=== PATIENT | male | born 1945 | race Caucasian/White ===

== ENCOUNTER → 2016-07-31 | Outpatient (CLI) | payer MEDICARE | LOC: GMAL 17:06 | PROVIDERS: ATTEND Family Medicine | DX: I50.9 Heart failure, unspecified (principal); N18.3 Chronic kidney disease, stage 3 (moderate) ==

== ENCOUNTER → 2016-11-19 | Outpatient (CLI) | payer MEDICARE | END | disposition home or self-care (01) | LOC: GMAL 16:36 | PROVIDERS: ATTEND Family Medicine | DX: R11.0 Nausea (principal) ==

== ENCOUNTER → 2017-02-11 | Outpatient (CLI) | payer MEDICARE | END | disposition home or self-care (01) | LOC: GMAL 11:17 | PROVIDERS: ATTEND Family Medicine | DX: D51.3 Other dietary vitamin B12 deficiency anemia (principal); R97.20 Elevated prostate specific antigen [PSA]; E55.9 Vitamin D deficiency, unspecified | CPT/HCPCS: 82306; 82607; G0103 ==

== ENCOUNTER → 2017-07-18 | Outpatient (CLI) | payer MEDICARE | LOC: GMAL 14:34 | PROVIDERS: ATTEND Family Medicine | DX: D51.3 Other dietary vitamin B12 deficiency anemia (principal); R53.81 Other malaise; E55.9 Vitamin D deficiency, unspecified ==

== ENCOUNTER → 2017-08-14 | Outpatient (CLI) | payer MEDICARE | LOC: GMAL 10:50 | PROVIDERS: ATTEND Family Medicine | DX: R97.20 Elevated prostate specific antigen [PSA] (principal); E29.1 Testicular hypofunction | CPT/HCPCS: 84402; 84403; G0103 ==

== ENCOUNTER → 2017-12-02 | Outpatient (CLI) | payer MEDICARE ==
--- NOTE | 2017-12-02 15:32 | MRI ---
EXAM DESCRIPTION: Lumbar Spine w/o Contrast : Magnetic Resonance Imaging. CLINICAL HISTORY: RADICULOPATHY COMPARISON: None. TECHNIQUE: Multiplanar, multiple standard sequences, non contrast MRI, lumbar spine. FINDINGS: L5-S1, and disc desiccation posterior disc space minimally decreased. Tiny posterior broad-based bulge. Bilateral facet arthrosis and flavum ligament Hypertrophy. Borderline mild canal stenosis. Right foraminal stenosis and borderline left foraminal stenosis. Marrow edema in the right L5 pedicle. L4-5: Disc desiccation posterior disc space loss. Schmorl's nodes in the superior anterior endplate. Posterior broad-based 4 mm disc bulge. Bilateral flavum ligament hypertrophy and facet arthrosis with borderline canal stenosis. Bilateral subarticular recess narrowing. Mild narrowing of the left foramen. Facet hypertrophy on the right with moderate narrowing of the foramen abutting the exiting right L4 nerve. L3-4: Disc desiccation and moderate to severe disc space loss. Anterior bulging with endplate spurs. Anterior disc protrusion. Posterior broad-based disc bulge 4 mm abutting the thecal sac and the bilateral descending L4 nerves. No canal stenosis. Bilateral facet arthrosis and flavum ligament hypertrophy. Left side Modic type III endplate reactive changes with disc spur complex contributing to borderline left foraminal stenosis. Question atrophy of the left L3 nerve in the foramen. Moderate right foraminal narrowing. L2-3: Disc desiccation anterior bulging and endplate spurs. Disc space maintained. No posterior bulging. Flavum ligament hypertrophy with normal facets. Mild canal narrowing. Bilateral foramina are patent. L1-2: Disc desiccation minimal disc space loss. Schmorl's nodes in the superior inferior endplates. Anterior disc bulge with anterior endplate spurs. Tiny posterior disc bulge and trace retrolisthesis. Posterior elements unremarkable. Mild canal narrowing. Bilateral foramina are patent. T12-L1: Minimal disc desiccation and superior L1 endplate Schmorl's node. No canal or foraminal stenosis. Conus terminates at L1 level. Reduced lumbar lordosis. Paravertebral soft tissues paraspinal muscle atrophy.. Otherwise normal marrow signal in the remaining vertebral bodies and the posterior elements. Vertebral bodies are not compressed at any level. IMPRESSION: 1. Borderline mild canal stenosis at L5-S1 primarily due to posterior ligament hypertrophy and facet arthrosis with stenosis or near stenosis of the foramina bilaterally. 2. Spondylosis L4-5 and disc desiccation. Hypertrophy of the posterior elements. Right side facet abutting the exiting right L4 nerve in the foramen. 3. L3-4 spondylosis and severe disc space loss. Posterior disc bulge abutting the bilateral descending L4 nerves. Left side advanced spondylosis with disc osteophyte complex resulting in borderline left foraminal stenosis. Questionable atrophy of the left L3 nerve in the foramen. 4. L1-2 disc desiccation. Anterior disc bulge and endplate spurs. Trace retrolisthesis. Electronically signed by: Hieu Thomason MD 12/02/2017 3:31 PM CDT
== END ==
LOC: MRI 12:29
PROVIDERS: ATTEND Family Medicine
DX: M54.16 Radiculopathy, lumbar region (principal); M47.896 Other spondylosis, lumbar region

== ENCOUNTER → 2017-12-31 | Outpatient (CLI) | payer MEDICARE ==
--- NOTE | 2017-12-31 15:32 | US ---
Exam: Bilateral lower extremity arterial Doppler sonogram CLINICAL HISTORY: Mononeuropathy TECHNIQUE: Doppler sonographic evaluation of the bilateral lower extremities was performed. FINDINGS: Right Submitted sonographic images reveal arteriosclerotic plaque in the right common femoral and superficial femoral arteries. High velocity flows suggestive of moderate stenosis of the common femoral artery. No flow in the posterior tibial artery consistent with occlusion. The following peak systolic flow flow velocity measurements were obtained: Common femoral artery velocity equals 222 centimeters per second , triphasic. Superficial femoral artery velocity equals 80 -102 centimeters per second , triphasic. Popliteal artery velocity equals 63 centimeters per second , triphasic. Peroneal artery velocity equals 106 centimeters per second , triphasic. No flow is seen in the posterior tibial artery. Dorsalis pedis artery velocity equals 22 centimeters per second , biphasic. Left Submitted sonographic images reveal calcified plaque in the left lower extremity arteries. The following peak systolic flow flow velocity measurements were obtained: Common femoral artery velocity equals 122 centimeters per second , triphasic. Superficial femoral artery velocity equals 86-1 21 centimeters per second , biphasic. Popliteal artery velocity equals 128 centimeters per second , biphasic. Peroneal artery velocity equals 203 centimeters per second , biphasic. Posterior tibial artery velocity equals 79 centimeters per second , biphasic. Dorsalis pedis artery velocity equals 34 centimeters per second , biphasic. IMPRESSION: High velocity flow in the right common femoral artery consistent with moderate luminal stenosis by arteriosclerotic plaque. No flow in the right posterior tibial artery consistent with occlusion. Normal multiphasic flow in other vessels of the lower extremities. Electronically signed by: Delmar Aguero MD 12/31/2017 3:30 PM CDT
== END ==
LOC: US 09:24
PROVIDERS: ATTEND Family Medicine
DX: G57.93 Unspecified mononeuropathy of bilateral lower limbs (principal); I70.8 Atherosclerosis of other arteries

== ENCOUNTER → 2018-03-03 | Outpatient (CLI) | payer MEDICARE | LOC: GMAL 13:38 | PROVIDERS: ATTEND Family Medicine | DX: D50.9 Iron deficiency anemia, unspecified (principal); I48.1 Persistent atrial fibrillation ==

== ENCOUNTER → 2018-07-31 | Outpatient (CLI) | payer MEDICARE | LOC: GMAL 12:18 | PROVIDERS: ATTEND Family Medicine | DX: E83.42 Hypomagnesemia (principal) ==

== ENCOUNTER → 2018-08-06 | Outpatient (CLI) | payer MEDICARE ==
--- NOTE | 2018-08-07 11:18 | MRI ---
EXAM DESCRIPTION: Lumbar Spine w/o Contrast : Magnetic Resonance Imaging. CLINICAL HISTORY: SCIATICA RIGHT SIDE COMPARISON: MRI scan noncontrast lumbar spine 12/04/2017. TECHNIQUE: Multiplanar, multiple standard sequences, non contrast MRI, lumbar spine. FINDINGS: L5-S1: Disc desiccation and disc space maintained. Posterior broad-based 4 mm disc bulge. Minimal effacement of the bilateral subarticular recesses. Bilateral facet arthrosis and hypertrophy with the flavum ligaments impressing on the thecal sac. AP canal diameter 11 mm. Bilateral foraminal stenosis more on the right than the left. Stable since the prior study. L4-L5: Disc desiccation and minimal disc space loss. Posterior broad-based bulge. Bilateral narrowing of the subarticular recesses. Superior and inferior Schmorl's nodes. Stable postsurgical changes in the lamina with encroachment on the right posterior canal. AP canal diameter 10 mm. Bilateral moderate foraminal narrowing more on the right. L3-L4: Modic type III endplate reactive changes to the left of midline with significant loss of disc space. Also superior Schmorl's nodes. Anterior bulging and endplate ridging. Posterior disc osteophyte bulge encroaching on the thecal sac and effacement of the left subarticular recess. Facet arthrosis and hypertrophy with the flavum ligaments more on the left. AP canal diameter 8 mm. Left foraminal stenosis and mild to moderate right foraminal narrowing. No change from the prior study. L2-L3: Minimal disc desiccation with disc space preserved. Minimal anterior bulging. No posterior bulge. Mild facet arthrosis and hypertrophic with the flavum ligaments and mild canal narrowing. Bilateral foramina are patent. L1-L2: Disc desiccation with Schmorl's nodes anterior disc bulge and endplate ridging. 2 mm grade 1 retrolisthesis with posterior disc bulge. No significant canal narrowing. Bilateral foramina are patent. Circumscribed hyperintense T1 and T2 signal in the posterior superior L2 vertebral body indicative of a hemangioma. T12-L1: Minimal disc desiccation with disc space preserved. Anterior Schmorl's node. No posterior bulge and significant canal narrowing. Posterior elements unremarkable. Bilateral foramina are patent. Mild kyphosis upper lumbar spine. No significant scoliosis. Paravertebral soft tissues paraspinal muscle atrophy mild.. Normal marrow signal in the remaining vertebral bodies and the posterior elements. Vertebral bodies are not compressed at any level. IMPRESSION: 1. Posterior broad-based L5-S1 disc bulge with significant canal narrowing and bilateral foraminal stenosis. Stable since the prior study. 2. Stable postsurgical changes in the lamina. Borderline mild right paracentral canal stenosis. Posterior disc bulge. No change since the prior study. 3. Advanced spondylosis at L3-4 to the left of midline with mild to moderate central canal stenosis. Left foraminal stenosis. Stable since the prior study. 4. L1-L2 disc desiccation and disc space loss with grade 1 retrolisthesis. No significant canal or foraminal narrowing. No change from the prior study.. Electronically signed by: Hieu Thomason MD 08/07/2018 11:15 AM CDT
== END ==
LOC: MRI 13:00
PROVIDERS: ATTEND Family Medicine
DX: M48.062 Spinal stenosis, lumbar region with neurogenic claudication (principal); M51.36 Other intervertebral disc degeneration, lumbar region; M43.16 Spondylolisthesis, lumbar region; M47.896 Other spondylosis, lumbar region; Z98.890 Other specified postprocedural states

== ENCOUNTER → 2019-01-05 | Outpatient (CLI) | payer MEDICARE | LOC: GMAL 10:49 | PROVIDERS: ATTEND Family Medicine | DX: D51.3 Other dietary vitamin B12 deficiency anemia (principal); I50.40 Unspecified combined systolic (congestive) and diastolic (congestive) heart failure; I48.1 Persistent atrial fibrillation; R53.83 Other fatigue ==

== ENCOUNTER → 2019-03-09 | Outpatient (CLI) | payer MEDICARE | LOC: GMAL 10:50 | PROVIDERS: ATTEND Family Medicine | DX: N18.3 Chronic kidney disease, stage 3 (moderate) (principal) ==

== ENCOUNTER 2019-08-07 13:03 | Emergency (ER) | payer MEDICARE ==
--- NOTE | 2019-08-07 13:25 | ED.PDOC ---
History of Present Illness - General Chief Complaint: General Stated Complaint: Pt reports "feeling crummy" for past few days Time Seen by Provider: 08/07/19 13:22 Source: patient, family Exam Limitations: no limitations - History of Present Illness Initial Comments: Pt reports feeling week the past ~3 days. Pt has chronic back/right sciatic pain, which has been worse over the past few days. Pt denies cough, SOB, F/C, N/V/D. Pt denies urinary or bowel issues. Dr. Boyd, pt's PCP, called ~30 min [employer] to share that pt was slightly altered and that has INR was >8 because it was too high for his machine to detect. says same thing occurred in the past 6 months in [facility]. Pt reports no recent injuries. Timing/Duration: other - ~3 days Severity: moderate Improving Factors: nothing Worsening Factors: nothing Associated Symptoms: denies symptoms Allergies/Adverse Reactions: Allergies Atorvastatin [From Lipitor] Allergy (Unknown, Unverified 03/09/13 16:50) FROM WRITTEN PHYSICIAN ORDERS Liraglutide [From Victoza] Allergy (Unknown, Unverified 03/09/13 16:51) FROM WRITTEN PHYSICIAN ORDER SHEET Phenol [From Victoza] Allergy (Unknown, Unverified 03/09/13 16:51) FROM WRITTEN PHYSICIAN ORDER SHEET Propylene Glycol [From Victoza] Allergy (Unknown, Unverified 03/09/13 16:51) FROM WRITTEN PHYSICIAN ORDER SHEET Home Medications: Ambulatory Orders Aspirin [Aspirin Childrens] 81 mg PO BID 08/07/19 Carvedilol 6.25 mg PO BID 08/07/19 Cholecalciferol [D3 High Potency] 5,000 unit PO DAILY 08/07/19 Famotidine 20 mg PO DAILY 08/07/19 Febuxostat [Uloric] 80 mg PO DAILY 08/07/19 Ferrous Fumarate-Iron Polysacc [Integra F 125-1 mg] 1 cap PO DAILY 08/07/19 Fluoxetine HCl [Prozac] 40 mg PO DAILY 08/07/19 Furosemide PO MOWEFR 08/07/19 Gemfibrozil 08/07/19 Gemfibrozil PO BID 08/07/19 HYDROcodone 10MG/APAP 325MG [[place] 10/325] 1 tab PO Q6HRS 08/07/19 Hydrocortisone 2.5 mg PO BID 08/07/19 Insulin Aspart [Novolog Flexpen] 08/07/19 LORazepam [Ativan] PRN 08/07/19 Magnesium Oxide [Mag-Ox Tab] PO DAILY 08/07/19 Misc Natural Products [Urinozinc] 1 cap PO BID 08/07/19 Ramipril 10 mg PO BID 08/07/19 Testosterone Cypionate 200 mg IM 08/07/19 Tresiba Flextouch 20 units SUBCU BID 08/07/19 diltiaZEM HCL CD [Cardizem CD] PO BID 08/07/19 fentaNYL PATCH 25 MCG/HR [Duragesic Patch 25 MCG/HR] 08/07/19 Review of Systems - Review of Systems Constitutional: States: see HPI, weakness. Denies: chills, diaphoresis, fever EENTM: States: no symptoms reported Respiratory: States: no symptoms reported, wheezing - But baseline and unchanged per . Denies: cough, orthopnea, short of breath Cardiology: States: no symptoms reported Gastrointestinal/Abdominal: States: no symptoms reported. Denies: abdominal pain, constipation, diarrhea, nausea, vomiting Genitourinary: States: no symptoms reported. Denies: dysuria, frequency, hematuria, pain Musculoskeletal: States: back pain, joint pain, muscle pain. Denies: gout, joint swelling, neck pain Skin: States: no symptoms reported Neurological: States: no symptoms reported. Denies: anxiety, depressed, headache Endocrine: States: no symptoms reported Past Medical History (General) - Patient Medical History Hx Cardiac Disorders: Yes Hx Congestive Heart Failure: No Hx Pacemaker: No Hx Hypertension: Yes Hx Diabetes: Yes Hx MRSA: No Family Medical History - Family History Mother Family History: Unknown Living Status: Unknown Physical Exam - Physical Exam General Appearance: Alert, Comfortable, No apparent distress Ears, Nose, Throat: normal ENT inspection Neck: non-tender, full range of motion, supple, normal inspection Respiratory: chest non-tender, lungs clear, normal breath sounds, no respiratory distress, no accessory muscle use Cardiovascular/Chest: normal peripheral pulses, regular rate, rhythm, no edema, no gallop, no JVD, no murmur Gastrointestinal/Abdominal: normal bowel sounds, non tender, soft, no organomegaly, no pulsatile mass Back Exam: normal inspection, no CVA tenderness Extremity: normal range of motion Neurologic: alert, normal mood/affect, oriented x 3 Skin Exam: normal color, warm/dry Progress - Progress Progress: 08/07/19 14:15 Patient Name: ARMANDO BARONE Gender: Male Date of : 1945 Referring Physician: BERNARD SANCHEZ Organization: [facility] Accession Number: [id number] Requested Date: August 07, 2019 13:29 Report Status: Final Requested Procedure: 1 Procedure Description: Head Modality: CT Findings Reporting MD: Rolly Gloria Fellow MD: Not available Dictation Time: Yard Stocker: Not available Epic Ambulatory Analyst Date: Study: CT of the Head. Indication: AMS, INR>8 Technique: Axial CT images of the head were acquired without intravenous contrast. This exam was performed according to our departmental dose-opti mization program, which includes automated exposure control, adjustment of the mA and/or kV according to patient size and/or use of iterative reconstruction technique. Comparison: None. Findings: No acute ischemia, acute hemorrhage, mass, mass effect, midline shift, or extra-axial fluid collection identified by CT. Ventricles are normal in configuration without hydrocephalus. Patchy hypoattenuation of the periventricular and subcortical white matter noted. This is nonspecific but most consistent with chronic microvascular ischemic change. Global parenchymal volume loss and intracranial atherosclerosis noted as well. Paranasal sinuses are adequately aerated. Mastoid air cells are adequately aerated. Osseous structures and soft tissues are unremarkable. Impression: No acute intracranial abnormality by CT. Senescent changes. Electronically signed by: Rolly Gloria MD 08/07/2019 2:05 PM CDT 08/07/19 14:17 Findings Reporting MD: Rhonda Regan Fellow MD: Not available Dictation Time: Yard Stocker: Not available Epic Ambulatory Analyst Date: EXAM DESCRIPTION: Chest,1 View CLINICAL HISTORY: 73 years Male, AMS COMPARISON: None available. TECHNIQUE: AP radiograph of the chest was obtained. FINDINGS: Trachea is midline.The cardiomediastinal silhouette is enlarged in size. Mild pulmonary vascular congestion. Left lower lobe atelectasis.No evidence of pleural effusions. IMPRESSION: Enlarged cardiac silhouette with pulmonary vascular congestion. Left lower lobe atelectasis. Electronically signed by: Rhonda Regan MD 08/07/2019 2:02 PM CDT 08/07/19 15:05 HGB noted 6.6. Occult blood feces ordered. Attempting to page Dr. Boyd but he is out of office for rest of day. 08/07/19 15:06 Vitamin K IM ordered. Will page hospitalist to see if pt can be admitted at this facility of needs to be transferred. 08/07/19 15:18 08/07/19 13:30 PRBC [PACKED CELLS,LR] Stat TYPE AND SCREEN Stat EKG Assessment DAILY EKG STAT 08/07/19 14:31 FECAL OCCULT BLOOD Stat 08/07/19 15:12 Consult:Hospitalist Routine Laboratory Results - last 24 hr 08/07/19 08/07/19 08/07/19 13:29 13:29 13:30 WBC RBC Hgb Hct MCV MCH MCHC RDW Plt Count MPV Absolute Neuts (auto) Absolute Lymphs (auto) Absolute Monos (auto) Absolute Eos (auto) Absolute Basos (auto) Neutrophils % Lymphocytes % Monocytes % Eosinophils % Basophils % PT INR Sodium 136 Potassium 5.4 H Chloride 103 Carbon Dioxide 23 Anion Gap 15.4 BUN 116 H* Creatinine 3.65 H BUN/Creatinine Ratio 31.8 H Random Glucose 174 H Serum Osmolality Not Reportable Lactic Acid Calcium 9.2 Total Bilirubin 0.3 AST 12 ALT 12 Alkaline Phosphatase 41 L Troponin I 0.03 Serum Total Protein 6.8 Albumin 3.8 Globulin 3.0 Albumin/Globulin Ratio 1.3 Urine Color Urine Appearance Urine pH Ur Specific Bartlett Urine Protein Urine Glucose (UA) Urine Ketones Urine Blood Urine Nitrite Urine Bilirubin Urine Urobilinogen Ur Leukocyte Esterase Urine RBC Urine WBC Ur Epithelial Cells Urine Bacteria Crossmatch See Detail 08/07/19 08/07/19 08/07/19 14:15 14:20 14:20 WBC 6.0 RBC 2.41 L Hgb 6.6 L* Hct 20.6 L MCV 85.8 MCH 27.3 MCHC 31.8 L RDW 18.2 H Plt Count 267 MPV 7.0 L Absolute Neuts (auto) 4.70 Absolute Lymphs (auto) 0.60 L Absolute Monos (auto) 0.50 Absolute Eos (auto) 0.20 Absolute Basos (auto) 0.00 Neutrophils % 77.5 Lymphocytes % 9.7 L Monocytes % 8.1 Eosinophils % 4.1 Basophils % 0.6 PT > 93.6 H* INR Not Reportable Sodium Potassium Chloride Carbon Dioxide Anion Gap BUN Creatinine BUN/Creatinine Ratio Random Glucose Serum Osmolality Lactic Acid 0.7 Calcium Total Bilirubin AST ALT Alkaline Phosphatase Troponin I Serum Total Protein Albumin Globulin Albumin/Globulin Ratio Urine Color Urine Appearance Urine pH Ur Specific [place] Urine Protein Urine Glucose (UA) Urine Ketones Urine Blood Urine Nitrite Urine Bilirubin Urine Urobilinogen Ur Leukocyte Esterase Urine RBC Urine WBC Ur Epithelial Cells Urine Bacteria Crossmatch 08/07/19 14:47 WBC RBC Hgb Hct MCV MCH MCHC RDW Plt Count MPV Absolute Neuts (auto) Absolute Lymphs (auto) Absolute Monos (auto) Absolute Eos (auto) Absolute Basos (auto) Neutrophils % Lymphocytes % Monocytes % Eosinophils % Basophils % PT INR Sodium Potassium Chloride Carbon Dioxide Anion Gap BUN Creatinine BUN/Creatinine Ratio Random Glucose Serum Osmolality Lactic Acid Calcium Total Bilirubin AST ALT Alkaline Phosphatase Troponin I Serum Total Protein Albumin Globulin Albumin/Globulin Ratio Urine Color Yellow Urine Appearance Clear Urine pH 5.5 Ur Specific Bartlett 1.020 Urine Protein 100 H Urine Glucose (UA) Negative Urine Ketones Negative Urine Blood Negative Urine Nitrite Negative Urine Bilirubin Negative Urine Urobilinogen 0.2 Ur Leukocyte Esterase Negative Urine RBC 0 Urine WBC 0 Ur Epithelial Cells 0-1 Urine Bacteria 0 Crossmatch D/w Devin Veliz. He felt pt was best served by transfer since pt has acute on chronic kidney failure and likely has blood loss anemia. 08/07/19 15:50 D/w Dr. Marcial Rosenthal at [facility], will accept transfer. - EKG/XRAY/CT EKG: Fibrillation Comments: Rate 64, LAD, RBBB, no acute ST changes Departure - Departure Clinical Impression: General weakness, Symptomatic anemia, Acute on chronic kidney failure, Altered mental status, Supratherapeutic INR, Anticoagulated on Coumadin Time of Disposition: 15:19 Disposition: Transfer to Hospital Condition: Fair Departure Forms: ED Discharge - Pt. Copy, Patient Portal Self Enrollment Referrals: Ladarius Boyd III, MD [Primary Care Provider] - 1-2 Weeks Home Medications: Ambulatory Orders Aspirin [Aspirin Childrens] 81 mg PO BID 08/07/19 Carvedilol 6.25 mg PO BID 08/07/19 Cholecalciferol [D3 High Potency] 5,000 unit PO DAILY 08/07/19 Famotidine 20 mg PO DAILY 08/07/19 Febuxostat [Uloric] 80 mg PO DAILY 08/07/19 Ferrous Fumarate-Iron Polysacc [Integra F 125-1 mg] 1 cap PO DAILY 08/07/19 Fluoxetine HCl [Prozac] 40 mg PO DAILY 08/07/19 Furosemide PO MOWEFR 08/07/19 Gemfibrozil 08/07/19 Gemfibrozil PO BID 08/07/19 HYDROcodone 10MG/APAP 325MG [[place] 10/325] 1 tab PO Q6HRS 08/07/19 Hydrocortisone 2.5 mg PO BID 08/07/19 Insulin Aspart [Novolog Flexpen] 08/07/19 LORazepam [Ativan] PRN 08/07/19 Magnesium Oxide [Mag-Ox Tab] PO DAILY 08/07/19 Misc Natural Products [Urinozinc] 1 cap PO BID 08/07/19 Ramipril 10 mg PO BID 08/07/19 Testosterone Cypionate 200 mg IM 08/07/19 Tresiba Flextouch 20 units SUBCU BID 08/07/19 diltiaZEM HCL CD [Cardizem CD] PO BID 08/07/19 fentaNYL PATCH 25 MCG/HR [Duragesic Patch 25 MCG/HR] 08/07/19 Transfer to Outside Facility - Transfer Information Decision to Transfer Date: 08/07/19 Decision to Transfer Time: 15:20 Reason for Transfer: required specialist not available Accepting Provider:: Marcial Rosenthal Accepting Facility: [facility]
--- NOTE | 2019-08-07 14:04 | RAD ---
EXAM DESCRIPTION: Chest,1 View CLINICAL HISTORY: 73 years Male, AMS COMPARISON: None available. TECHNIQUE: AP radiograph of the chest was obtained. FINDINGS: Trachea is midline.The cardiomediastinal silhouette is enlarged in size. Mild pulmonary vascular congestion. Left lower lobe atelectasis.No evidence of pleural effusions. IMPRESSION: Enlarged cardiac silhouette with pulmonary vascular congestion. Left lower lobe atelectasis. Electronically signed by: Rhonda Regan MD 08/07/2019 2:02 PM CDT
--- NOTE | 2019-08-07 14:06 | CT ---
Study: CT of the Head. Indication: AMS, INR>8 Technique: Axial CT images of the head were acquired without intravenous contrast. This exam was performed according to our departmental dose-optimization program, which includes automated exposure control, adjustment of the mA and/or kV according to patient size and/or use of iterative reconstruction technique. Comparison: None. Findings: No acute ischemia, acute hemorrhage, mass, mass effect, midline shift, or extra-axial fluid collection identified by CT. Ventricles are normal in configuration without hydrocephalus. Patchy hypoattenuation of the periventricular and subcortical white matter noted. This is nonspecific but most consistent with chronic microvascular ischemic change. Global parenchymal volume loss and intracranial atherosclerosis noted as well. Paranasal sinuses are adequately aerated. Mastoid air cells are adequately aerated. Osseous structures and soft tissues are unremarkable. Impression: No acute intracranial abnormality by CT. Senescent changes. Electronically signed by: Rolly Gloria MD 08/07/2019 2:05 PM CDT
[2019-08-07] MEDS ORDERED: PHYTONADIONE INJ 10 MG/ML AMP IM ONE (15:04)
[2019-08-07] MEDS ORDERED: SODIUM CHLORIDE 0.9% 250ML 250 ML ONE (16:36)
[2019-08-07 17:04] VITALS: TEMP 98.4
[2019-08-07 17:26] VITALS: BP 174/60; O2SAT 95
== END 2019-08-07 17:26 | disposition short-term general hospital (02) ==
LOC: ER 13:03
DX: R53.1 Weakness (principal); N17.9 Acute kidney failure, unspecified; R41.82 Altered mental status, unspecified; N18.9 Chronic kidney disease, unspecified; I12.9 Hypertensive chronic kidney disease with stage 1 through stage 4 chronic kidney disease, or unspecified chronic kidney disease; E11.9 Type 2 diabetes mellitus without complications; Z79.01 Long term (current) use of anticoagulants; I45.10 Unspecified right bundle-branch block; I48.91 Unspecified atrial fibrillation; Z79.4 Long term (current) use of insulin
CPT/HCPCS: 36415; 70450; 71045; 80053; 81001; 82270; 83605; 84484; 85025; 85610; 86922; 93005; J3430; J7050; P9016

== ENCOUNTER → 2019-08-24 | Outpatient (CLI) | payer MEDICARE | LOC: BFHH 15:01 | PROVIDERS: ATTEND Family Medicine | DX: I10 Essential (primary) hypertension (principal); I48.20 Chronic atrial fibrillation, unspecified; I50.9 Heart failure, unspecified ==

== ENCOUNTER → 2019-08-31 | Outpatient (CLI) | payer MEDICARE | LOC: BFHH 13:15 | PROVIDERS: ATTEND Family Medicine | DX: K92.2 Gastrointestinal hemorrhage, unspecified (principal); D50.0 Iron deficiency anemia secondary to blood loss (chronic); T45.515D Adverse effect of anticoagulants, subsequent encounter ==

== ENCOUNTER → 2019-09-14 | Outpatient (CLI) | payer MEDICARE | LOC: BFHH 16:30 | PROVIDERS: ATTEND Family Medicine | DX: D50.0 Iron deficiency anemia secondary to blood loss (chronic) (principal); I13.0 Hypertensive heart and chronic kidney disease with heart failure and stage 1 through stage 4 chronic kidney disease, or unspecified chronic kidney disease; N18.9 Chronic kidney disease, unspecified ==

== ENCOUNTER → 2019-09-23 | Outpatient (CLI) | payer MEDICARE | LOC: BFHH 16:21 | PROVIDERS: ATTEND Family Medicine | DX: D50.0 Iron deficiency anemia secondary to blood loss (chronic) (principal); R53.81 Other malaise; K92.2 Gastrointestinal hemorrhage, unspecified; T45.515A Adverse effect of anticoagulants, initial encounter ==

== ENCOUNTER → 2019-10-19 | Outpatient (CLI) | payer MEDICARE | LOC: BFHH 12:55 | PROVIDERS: ATTEND Family Medicine | DX: D50.0 Iron deficiency anemia secondary to blood loss (chronic) (principal); R53.81 Other malaise; N18.3 Chronic kidney disease, stage 3 (moderate); I48.19 Other persistent atrial fibrillation ==

== ENCOUNTER → 2019-11-16 | Outpatient (CLI) | payer MEDICARE | LOC: BFHH 09:51 | PROVIDERS: ATTEND Family Medicine | DX: D50.0 Iron deficiency anemia secondary to blood loss (chronic) (principal); I13.0 Hypertensive heart and chronic kidney disease with heart failure and stage 1 through stage 4 chronic kidney disease, or unspecified chronic kidney disease; N18.3 Chronic kidney disease, stage 3 (moderate); E11.22 Type 2 diabetes mellitus with diabetic chronic kidney disease; I48.19 Other persistent atrial fibrillation ==

== ENCOUNTER → 2019-11-23 | Outpatient (CLI) | payer MEDICARE | LOC: BFHH 12:18 | PROVIDERS: ATTEND Family Medicine | DX: D50.0 Iron deficiency anemia secondary to blood loss (chronic) (principal); I13.0 Hypertensive heart and chronic kidney disease with heart failure and stage 1 through stage 4 chronic kidney disease, or unspecified chronic kidney disease; I50.40 Unspecified combined systolic (congestive) and diastolic (congestive) heart failure; E11.22 Type 2 diabetes mellitus with diabetic chronic kidney disease; N18.3 Chronic kidney disease, stage 3 (moderate); I48.19 Other persistent atrial fibrillation; E66.9 Obesity, unspecified; M54.16 Radiculopathy, lumbar region ==

== ENCOUNTER → 2019-11-30 | Outpatient (CLI) | payer MEDICARE | LOC: BFHH 12:03 | PROVIDERS: ATTEND Family Medicine | DX: D50.0 Iron deficiency anemia secondary to blood loss (chronic) (principal); I13.0 Hypertensive heart and chronic kidney disease with heart failure and stage 1 through stage 4 chronic kidney disease, or unspecified chronic kidney disease; N18.3 Chronic kidney disease, stage 3 (moderate); I50.40 Unspecified combined systolic (congestive) and diastolic (congestive) heart failure; E11.22 Type 2 diabetes mellitus with diabetic chronic kidney disease; I48.19 Other persistent atrial fibrillation; E66.9 Obesity, unspecified; E27.40 Unspecified adrenocortical insufficiency ==

== ENCOUNTER → 2020-02-16 | Outpatient (CLI) | payer MEDICARE | LOC: GMAL 15:46 | PROVIDERS: ATTEND Family Medicine | DX: D50.9 Iron deficiency anemia, unspecified (principal); E10.9 Type 1 diabetes mellitus without complications; I10 Essential (primary) hypertension; I48.91 Unspecified atrial fibrillation; Z79.899 Other long term (current) drug therapy; R60.0 Localized edema ==

== ENCOUNTER → 2020-03-31 | Outpatient (CLI) | payer MEDICARE | LOC: GMAL 14:37 | PROVIDERS: ATTEND Family Medicine | DX: D50.9 Iron deficiency anemia, unspecified (principal); R53.83 Other fatigue; Z79.899 Other long term (current) drug therapy; I10 Essential (primary) hypertension; E10.9 Type 1 diabetes mellitus without complications ==

== ENCOUNTER 2020-04-28 14:40 | Inpatient (IN) | payer MEDICARE ==
--- NOTE | 2020-04-28 15:30 | RAD ---
EXAM: Chest,1 View INDICATION: 74 years Male, sob, hypoxia COMPARISON: Single view of the chest 08/07/2019 FINDINGS: Single view of the chest was performed. Stable cardiomegaly. Prominent central pulmonary vasculature. Hazy interstitial and perihilar alveolar opacities, likely representing edema. No definite sizable pleural effusion. No pneumothorax. Sternotomy wires are noted. Partially visualized hardware in the cervical spine. Unremarkable appearance of the visualized upper abdomen. IMPRESSION: Cardiomegaly with hazy bilateral perihilar interstitial and alveolar opacities. Findings most likely represent pulmonary edema, although infectious infiltrate is not excluded. Correlate clinically. Electronically signed by: Merry Herbert MD 04/28/2020 3:29 PM [facility]
[2020-04-28] MEDS ORDERED: IPRATROPIUM/ALBUTEROL 3 ML VIAL NEB ONE (16:15)
[2020-04-28] MEDS ORDERED: FUROSEMIDE INJ 40 MG/4 ML VIAL IV ONE (16:29)
[2020-04-28] MEDS ORDERED: AZITHROMYCIN IV 500 MG in SODIUM CHLORIDE 0.9% 250ML 250 ML IVPB ONE (16:31)
[2020-04-28] MEDS ORDERED: cefTRIAXone SODIUM 1 GM in SODIUM CHL 0.9% 50ML MIN-BAG+ 50 ML IVPB ONE (16:31)
[2020-04-28] MEDS ORDERED: INSULIN LISPRO 100 UNITS/ML PEN SUBCU ONE (16:37)
[2020-04-28] MEDS ORDERED: predniSONE 20 MG TAB PO ONE (16:37)
[2020-04-28] MEDS ORDERED: MAGNESIUM SULFATE PREMIX 2GM 2 GM in PREMIX BAG 1 BAG IVPB ONE (16:38)
--- NOTE | 2020-04-28 16:56 | ED.PDOC ---
History of Present Illness - General Chief Complaint: Respiratory Problem Time Seen by Provider: 04/28/20 15:05 Source: patient, family Exam Limitations: no limitations - History of Present Illness Initial Comments: The patient is a 74-year-old male presented emergency room secondary to increasing shortness of breath over the last 3 or 4 days. No definite fevers. Today he had some nausea and threw up one time this morning. He believes he may have thrown up his morning medications. No definite fever. Mild cough. No chest pain. No syncope. He does have increased abdominal girth and increased peripheral edema. He does have a history of congestive heart failure, reactive airway disease, chronic renal sufficiency and diabetes. He is supposed to be on a fluid restriction. He is followed by nephrology. Oxygen saturations 85% on room air today. He does not normally require oxygen. The patient does have chronic atrial fibrillation but is no longer on blood thinners secondary to fall risk. Timing/Duration: other - 3 days or so Severity: moderate Improving Factors: rest Worsening Factors: movement Associated Symptoms: cough, malaise, shortness of breath Allergies/Adverse Reactions: Allergies Atorvastatin [From Lipitor] Allergy (Unknown, Unverified 03/09/13 16:50) FROM WRITTEN PHYSICIAN ORDERS Liraglutide [From Victoza] Allergy (Unknown, Unverified 03/09/13 16:51) FROM WRITTEN PHYSICIAN ORDER SHEET Phenol [From Victoza] Allergy (Unknown, Unverified 03/09/13 16:51) FROM WRITTEN PHYSICIAN ORDER SHEET Propylene Glycol [From Victoza] Allergy (Unknown, Unverified 03/09/13 16:51) FROM WRITTEN PHYSICIAN ORDER SHEET Home Medications: Ambulatory Orders Aspirin [Aspirin Childrens] 81 mg PO BID 08/07/19 Carvedilol 6.25 mg PO BID 08/07/19 Cholecalciferol [D3 High Potency] 5,000 unit PO DAILY 08/07/19 Famotidine 20 mg PO DAILY 08/07/19 Febuxostat [Uloric] 80 mg PO DAILY 08/07/19 Ferrous Fumarate-Iron Polysacc [Integra F 125-1 mg] 1 cap PO DAILY 08/07/19 Fluoxetine HCl [Prozac] 40 mg PO DAILY 08/07/19 Furosemide PO MOWEFR 08/07/19 Gemfibrozil 08/07/19 Gemfibrozil PO BID 08/07/19 HYDROcodone 10MG/APAP 325MG [[place] 10/325] 1 tab PO Q6HRS 08/07/19 Hydrocortisone 2.5 mg PO BID 08/07/19 Insulin Aspart [Novolog Flexpen] 08/07/19 LORazepam [Ativan] PRN 08/07/19 Magnesium Oxide [Mag-Ox Tab] PO DAILY 08/07/19 Misc Natural Products [Urinozinc] 1 cap PO BID 08/07/19 Ramipril 10 mg PO BID 08/07/19 Testosterone Cypionate 200 mg IM 08/07/19 Tresiba Flextouch 20 units SUBCU BID 08/07/19 diltiaZEM HCL CD [Cardizem CD] PO BID 08/07/19 fentaNYL PATCH 25 MCG/HR [Duragesic Patch 25 MCG/HR] 08/07/19 Review of Systems - Review of Systems Constitutional: States: malaise EENTM: States: no symptoms reported Respiratory: States: cough, short of breath Cardiology: States: edema Gastrointestinal/Abdominal: States: nausea, vomiting Genitourinary: States: no symptoms reported Musculoskeletal: States: no symptoms reported Skin: States: no symptoms reported Neurological: States: no symptoms reported Endocrine: States: no symptoms reported All other Systems: No Change from Baseline Past Medical History (General) - Patient Medical History Hx Asthma: No Hx Cardiac Disorders: Yes Hx Congestive Heart Failure: No Hx Pacemaker: No Hx Hypertension: Yes Hx Diabetes: Yes Hx MRSA: No - Vaccination History Hx Influenza Vaccination: Yes Hx Pneumococcal Vaccination: Yes - Social History Hx Tobacco Use: Yes Hx Alcohol Use: Yes Family Medical History - Family History Mother Family History: Unknown Living Status: Unknown Physical Exam - Physical Exam General Appearance: Alert, Frail, Ill Appearing Ears, Nose, Throat: hearing grossly normal - Chronically decreased bilaterally, normal pharynx Neck: non-tender Respiratory: decreased breath sounds, accessory muscle use, rales, wheezing Cardiovascular/Chest: normal peripheral pulses, irregularly irregular, other - +2 edema bilaterally Peripheral Pulses: radial,right: 2+, radial,left: 2+ Gastrointestinal/Abdominal: non tender - Morbidly obese., soft Rectal Exam: deferred Back Exam: no CVA tenderness, no vertebral tenderness Extremity: normal range of motion, non-tender, normal inspection, normal capillary refill, pedal edema Neurologic: direct mail coordinator II-XII nml as tested, alert, normal mood/affect, oriented x 3 Skin Exam: normal color Comments: Vital Signs - 24 hr 04/28/20 16:20 Pulse Rate 86 Respiratory 22 Rate O2 Sat by Pulse 97 Oximetry Systolic blood pressures are in the 160s to 180s and diastolics are in the 90s to 110s Progress - Progress Progress: 04/28/20 17:01 The patient is a 74-year-old male presented emergency room secondary to progressive shortness of breath as well as an episode of nausea and vomiting this morning. The patient is found to be hypoxic. He does appear to be in a mixed COPD CHF exacerbation. White blood cell count is mildly elevated. There is a possibility of underlying pulmonary infection. Blood culture is being do ne. The patient is being started on Rocephin and azithromycin. He has been placed on low-dose prednisone for the COPD component as well. He did receive a DuoNeb treatment which did help significantly help he felt. The patient is receiving IV Lasix for the CHF exacerbation. He is also receiving doses of metoprolol and lisinopril here to bring his blood pressure down for the CHF. He will need to be on fluid restriction. We will continue supplemental oxygen. The patient does have chronic renal insufficiency which will have to be monitored closely with diuresis. The patient is also a diabetic. He has received 7 units of insulin lispro here in the emergency room and this will need to be followed as well. Admit for continued care. sumaya whaley [phone] - Results/Orders Results/Orders: Rapid coronavirus test is negative. Chest x-ray is consistent with fluid overload but infection cannot be ruled out. EKG shows mild left axis deviation. Widening of the QRS complex. Right bundle branch block. No definitive ST segment or T wave changes indicative of acute ischemia otherwise. He is in atrial fibrillation at a rate of 88 bpm. Laboratory Tests 04/28/20 04/28/20 04/28/20 15:40 15:40 15:40 WBC 10.8 RBC 3.88 L Hgb 10.1 L Hct 31.3 L MCV 80.7 MCH 26.0 L MCHC 32.2 L RDW 14.9 H Plt Count 299 MPV 7.0 L Absolute Neuts (auto) 9.30 H Absolute Lymphs (auto) 0.50 L Absolute Monos (auto) 0.70 Absolute Eos (auto) 0.20 Absolute Basos (auto) 0.10 Neutrophils % 86.2 H Lymphocytes % 4.7 L Monocytes % 6.1 Eosinophils % 1.9 Basophils % 1.1 PT 11.4 H INR 1.15 PTT (SP) 31.2 Fibrinogen D-Dimer, Quantitative 930.0 H* Sodium 137 Potassium 4.5 Chloride 95 L Carbon Dioxide 29 Anion Gap 17.5 BUN 40 H Creatinine 2.10 H BUN/Creatinine Ratio 19.0 Random Glucose 317 H Serum Osmolality 295.7 H Lactic Acid Calcium 9.1 Magnesium 1.5 L Ferritin Total Bilirubin 0.3 AST 12 ALT 11 Alkaline Phosphatase 81 LD Total Creatine Kinase 51 CK-MB (CK-2) 2.8 CK-MB (CK-2) % Not Reportable Troponin I 0.02 C-Reactive Protein B-Natriuretic Peptide 811.0 H* Serum Total Protein 7.8 Albumin 3.4 Globulin 4.4 H Albumin/Globulin Ratio 0.8 L Amylase 36 Lipase 30 TSH 2.64 Urine Color Urine Appearance Urine pH Ur Specific [place] Urine Protein Urine Glucose (UA) Urine Ketones Urine Blood Urine Nitrite Urine Bilirubin Urine Urobilinogen Ur Leukocyte Esterase Urine RBC Urine WBC Ur Epithelial Cells Urine Bacteria 04/28/20 04/28/20 04/28/20 15:40 15:40 15:40 WBC RBC Hgb Hct MCV MCH MCHC RDW Plt Count MPV Absolute Neuts (auto) Absolute Lymphs (auto) Absolute Monos (auto) Absolute Eos (auto) Absolute Basos (auto) Neutrophils % Lymphocytes % Monocytes % Eosinophils % Basophils % PT INR PTT (SP) Fibrinogen 675 H D-Dimer, Quantitative Sodium Potassium Chloride Carbon Dioxide Anion Gap BUN Creatinine BUN/Creatinine Ratio Random Glucose Serum Osmolality Lactic Acid 1.4 Calcium Magnesium Ferritin 202.9 Total Bilirubin AST ALT Alkaline Phosphatase LD Total Creatine Kinase CK-MB (CK-2) CK-MB (CK-2) % Troponin I C-Reactive Protein B-Natriuretic Peptide Serum Total Protein Albumin Globulin Albumin/Globulin Ratio Amylase Lipase TSH Urine Color Urine Appearance Urine pH Ur Specific [place] Urine Protein Urine Glucose (UA) Urine Ketones Urine Blood Urine Nitrite Urine Bilirubin Urine Urobilinogen Ur Leukocyte Esterase Urine RBC Urine WBC Ur Epithelial Cells Urine Bacteria 04/28/20 04/28/20 15:40 15:41 WBC RBC Hgb Hct MCV MCH MCHC RDW Plt Count MPV Absolute Neuts (auto) Absolute Lymphs (auto) Absolute Monos (auto) Absolute Eos (auto) Absolute Basos (auto) Neutrophils % Lymphocytes % Monocytes % Eosinophils % Basophils % PT INR PTT (SP) Fibrinogen D-Dimer, Quantitative Sodium Potassium Chloride Carbon Dioxide Anion Gap BUN Creatinine BUN/Creatinine Ratio Random Glucose Serum Osmolality Lactic Acid Calcium Magnesium Ferritin Total Bilirubin AST ALT Alkaline Phosphatase LD Total 167 Creatine Kinase CK-MB (CK-2) CK-MB (CK-2) % Troponin I C-Reactive Protein 1.7 H B-Natriuretic Peptide Serum Total Protein Albumin Globulin Albumin/Globulin Ratio Amylase Lipase TSH Urine Color Yellow Urine Appearance Clear Urine pH 6.5 Ur Specific [place] 1.020 Urine Protein >=300 H Urine Glucose (UA) 250 H Urine Ketones Negative Urine Blood Trace-lysed H Urine Nitrite Negative Urine Bilirubin Negative Urine Urobilinogen 0.2 Ur Leukocyte Esterase Negative Urine RBC 0-1 Urine WBC 0-1 Ur Epithelial Cells 0-1 Urine Bacteria 0 Departure - Departure Clinical Impression: COPD with exacerbation, Hyperglycemia Acute exacerbation of CHF (congestive heart failure) Qualifiers: Heart failure type: combined systolic and diastolic Qualified Code(s): I50.43 - Acute on chronic combined systolic (congestive) and diastolic (congestive) heart failure Pulmonary edema Qualifiers: Chronicity: acute Qualified Code(s): J81.0 - Acute pulmonary edema Nausea and vomiting Qualifiers: Vomiting type: unspecified Vomiting Intractability: non-intractable Qualified Code(s): R11.2 - Nausea with vomiting, unspecified Disposition: Admit Patient Departure Forms: ED Discharge - Pt. Copy, Patient Portal Self Enrollment Referrals: Ladarius Boyd III, MD [Primary Care Provider] - 1-2 Weeks Home Medications: Ambulatory Orders Aspirin [Aspirin Childrens] 81 mg PO BID 08/07/19 Carvedilol 6.25 mg PO BID 08/07/19 Cholecalciferol [D3 High Potency] 5,000 unit PO DAILY 08/07/19 Famotidine 20 mg PO DAILY 08/07/19 Febuxostat [Uloric] 80 mg PO DAILY 08/07/19 Ferrous Fumarate-Iron Polysacc [Integra F 125-1 mg] 1 cap PO DAILY 08/07/19 Fluoxetine HCl [Prozac] 40 mg PO DAILY 08/07/19 Furosemide PO MOWEFR 08/07/19 Gemfibrozil 08/07/19 Gemfibrozil PO BID 08/07/19 HYDROcodone 10MG/APAP 325MG [[place] 10] 1 tab PO Q6HRS 08/07/19 Hydrocortisone 2.5 mg PO BID 08/07/19 Insulin Aspart [Novolog Flexpen] 08/07/19 LORazepam [Ativan] PRN 08/07/19 Magnesium Oxide [Mag-Ox Tab] PO DAILY 08/07/19 Misc Natural Products [Urinozinc] 1 cap PO BID 08/07/19 Ramipril 10 mg PO BID 08/07/19 Testosterone Cypionate 200 mg IM 08/07/19 Tresiba Flextouch 20 units SUBCU BID 08/07/19 diltiaZEM HCL CD [Cardizem CD] PO BID 08/07/19 fentaNYL PATCH 25 MCG/HR [Duragesic Patch 25 MCG/HR] 08/07/19 Decision To Admit - Decistion To Admit Decision to Admit Reason: Medical Nature Decision to Admit Date: 04/28/20 Decision to Admit Time: 17:04
--- NOTE | 2020-04-28 18:21 | HP ---
SUPERVISING PHYSICIAN: Juventino Hunt MD CHIEF COMPLAINT: Shortness of breath. HISTORY OF PRESENT ILLNESS: This is a 74 year-old male patient who presented to Emergency Room due to shortness of breath that had progressively worsened over the last 4 or 5 days. He denied any fevers. He has some nausea with a mild cough. He had no chest pain. He does have a history of congestive heart failure and chronic lung deficiency as well as coronary artery disease and diabetes, supposedly on fluid restriction but does not adhere to that. His 02 saturation on admission to the Emergency Room was 85% and he does not have 02 at home. His vital signs on admission were temperature 97.5, heart rate 78, blood pressure 185/123. He was given blood pressure medicine and it came down to 172/73, respiratory rate 24, 02 saturation 85% on room air. WBC 10,800 with hemoglobin 10.1, hematocrit 31.3. D-dimer 930, fibrinogen 675, sodium 137, potassium 4.5, chloride 95, carbon dioxide 29, BUN 40, creatinine 2.1, baseline creatinine about 2. Magnesium .5, BNP 811, TSH 264. Urinalysis unremarkable. Blood cultures were drawn. Covid panel was negative. Chest x-ray shows cardiomegaly with hazy bilateral perihilar interstitial and alveolar opacities. Findings most likely represent pulmonary edema, although infectious infiltrate not excluded. Correlate clinically. He was given some Lasix, multiple breathing treatments and azithromycin and Rocephin. He was also given some extra insulin due to his high blood sugars and was admitted to the hospital in stable condition. PAST MEDICAL HISTORY: 1. Atrial fibrillation presently on no blood thinners. 2. Chronic renal insufficiency. 3. Diabetes mellitus type 2. 4. Coronary artery disease. 5. Congestive heart failure of unknown etiology, no echocardiogram to review. 6. Hyperlipidemia. 7. Reactive airway disease. 8. Hypertension. PAST SURGICAL HISTORY: 1. Coronary artery bypass graft. 2. Back surgery. 3. Neck surgery. 4. Hemorrhoid surgery. CURRENT MEDICATIONS: Per the EMR and awaiting verification. ALLERGIES: Atorvastatin, Liraglutide, Phenyl, Propylene Glycol. FAMILY HISTORY: SOCIAL HISTORY: He lives in [place]. He smoked previously but quit about 40 years ago. He drinks alcohol on a social basis. There is no history of illicit drug use. REVIEW OF SYSTEMS: GENERAL: Positive for malaise, negative for fever or weight changes. HEENT: Negative for sinus symptoms, ear pain, vision changes, sore throat. RESPIRATORY: Positive for coughing, shortness of breath, negative for wheezing. CARDIAC: Negative for chest pain, palpitations, tachycardia. GI: Positive for nausea and vomiting. Negative for constipation or diarrhea. Positive for abdominal edema. GENITOURINARY: Negative for hematuria, dysuria, polyuria. MUSCULOSKELETAL: Negative for arthralgias, myalgias. SKIN: Negative for lesions or rashes. EXTREMITIES. Positive for mild lower extremity edema. PHYSICAL EXAMINATION: VITAL SIGNS: Temperature 98, heart rate 67, blood pressure 164/60, respiratory rate 20, oxygen saturation 93% on room air. GENERAL: This is a 74 year-old male patient who is lying in his hospital bed. He is in no acute distress. HEENT: Normocephalic and atraumatic. pupils are equal and reactive. Oropharynx is clear. NECK: Supple without mass. CHEST: Diminished breath sounds throughout with a few scattered rales throughout, he is slightly tachypneic with exertion. CARDIOVASCULAR: Regular rate, irregular rhythm. ABDOMEN: Soft, nondistended, non-tender. Bowel sounds are positive. EXTREMITIES: No cords, clubbing, or edema. NEUROLOGIC: He is awake, alert, and oriented x3. Cranial nerves II through XII are grossly intact as tested. SKIN: [place], warm and dry. LABORATORY: Followup labs show WBC of 8, hemoglobin 9.3, hematocrit 29.3. He has a left shift on his differential. Sodium 134, potassium 4.4, chloride 95, BUN 42, creatinine 2.12. C-reactive protein 1.7. RADIOLOGY: Chest x-ray shows pulmonary vascular congestion. All other labs and films have been reviewed via the EMR. ASSESSMENT: 1. Congestive heart failure of unknown etiology with no current echocardiogram to review, as well as a current exacerbation. 2. Bilateral pneumonia, most likely community acquired. 3. Hypoxemia secondary to #1 and #2. 4. Chronic renal insufficiency. 5. Coronary artery disease. 6. Hypertension. 7. Diabetes mellitus type 2. PLAN: The patient has been admitted to the hospital. He will be placed on the congestive heart failure guidelines including IV Lasix. His home medications will be restarted when they are verified. I have ordered an echocardiogram for Saturday. We will also continue him on azithromycin and Rocephin as well as aggressive pulmonary hygiene. We will monitor his labs closely, will put him on fluid restriction. He will be on sliding scale insulin per protocol. I have ordered and chest x-ray for in the morning. We will continue to monitor him closely and follow as needed. [facility][id number] [facility]
[2020-04-28] MEDS ORDERED: HYDROcodone 5MG/APAP 325MG 1 EA TAB PO PRN (23:55)
[2020-04-29] MEDS ORDERED: NITROGLYCERIN 0.4 MG 25 EA TAB SL PRN (00:01)
[2020-04-29] MEDS ORDERED: ONDANSETRON INJ 4 MG/2 ML VIAL IV PRN (00:01)
[2020-04-29] MEDS ORDERED: ALBUTEROL SULFATE 2.5 MG/3 ML VIAL NEB PRN (00:01)
[2020-04-29] MEDS ORDERED: SODIUM CHLORIDE 0.9% (FLUSH) 10 ML SYG IV PRN (00:01)
[2020-04-29] MEDS ORDERED: GLUCAGON INJ 1 MG VIAL SUBCU PRN (00:09)
[2020-04-29] MEDS ORDERED: DEXTROSE 50% 25 GM/50 ML SYG IV PRN (00:09)
[2020-04-29] MEDS ORDERED: CARVEDILOL 12.5 MG TAB ONE ×3 (00:35→19:14)
[2020-04-29] MEDS: diltiaZEM HCL CD 180 MG CAP PO SCH ×3 (00:38→20:54)
[2020-04-29] MEDS: METHADONE HCL 10 MG TAB PO SCH ×4 (00:38→22:16)
[2020-04-29] MEDS: CARVEDILOL 12.5 MG PO SCH ×3 (00:39→20:57)
[2020-04-29] MEDS: IV SET AND CAP CHANGE INJ INJ SCH (00:40)
[2020-04-29] MEDS: PANTOPRAZOLE SODIUM IV 40 MG VIAL IV SCH (05:52)
--- NOTE | 2020-04-29 07:36 | RAD ---
EXAM: Two view chest. INDICATION: CHF. COMPARISON: Chest x-ray: 04/28/2020. FINDINGS: There is pulmonary vascular congestion. Heart is enlarged. No pneumothorax or pleural effusion. Changes of median sternotomy. Spinal stimulator leads are noted. IMPRESSION: Pulmonary vascular congestion Electronically signed by: Kit eFliz MD 04/29/2020 7:34 AM AIR ROUTE CONTROLLER
[2020-04-29] MEDS: INSULIN LISPRO 100 UNITS/ML PEN SUBCU SCH ×4 (08:00→21:04)
[2020-04-29] MEDS ORDERED: IPRATROPIUM/ALBUTEROL 3 ML VIAL NEB ONE ×3 (08:21→16:13)
[2020-04-29] MEDS: IPRATROPIUM/ALBUTEROL 3 ML VIAL INH SCH ×3 (08:40→17:40)
[2020-04-29] MEDS ORDERED: FLUoxetine HCL 20 MG CAP ONE (09:32)
[2020-04-29] MEDS ORDERED: FUROSEMIDE INJ 40 MG/4 ML VIAL ONE ×2 (11:17→17:54)
[2020-04-29] MEDS: SODIUM CHLORIDE 0.9% (FLUSH) 10 ML SYG IV SCH ×2 (11:23→20:58)
[2020-04-29] MEDS ORDERED: METHADONE HCL 10 MG TAB ONE ×2 (11:45→19:14)
[2020-04-29] MEDS: FUROSEMIDE INJ 40 MG/4 ML VIAL IV SCH ×2 (11:49→18:05)
[2020-04-29] MEDS: GEMFIBROZIL 600 MG TAB PO SCH ×2 (11:54→20:54)
[2020-04-29] MEDS: FLUOXETINE HCL 40 MG PO SCH (11:58)
[2020-04-29] MEDS: NON-FORMULARY MEDICATION 1 EA MIS (Rosuvastatin Calcium [Crestor] 10 MG) PO SCH (18:07)
[2020-04-29] MEDS: (Febuxostat [Uloric] 80 MG) PO SCH (18:07)
[2020-04-29] MEDS: HYDROCORTISONE 5 MG PO SCH ×2 (18:07→21:02)
[2020-04-29] MEDS ORDERED: diltiaZEM HCL CD 180 MG CAP ONE (19:14)
[2020-04-29] MEDS: GABAPENTIN 100 MG CAP PO SCH (20:57)
[2020-04-29] MEDS: ENOXAPARIN SODIUM 40 MG/0.4 ML SYG SUBCU SCH (20:58)
[2020-04-29] MEDS ORDERED: LORazepam 1 MG TAB ONE (22:23)
[2020-04-29] MEDS: diphenhydrAMINE HCL 25 MG CAP PO PRN (22:30)
[2020-04-29] MEDS: LORazepam 1 MG TAB PO PRN (22:30)
[2020-04-30] MEDS: IPRATROPIUM/ALBUTEROL 3 ML VIAL INH SCH ×5 (01:59→20:00)
[2020-04-30] MEDS ORDERED: PANTOPRAZOLE SODIUM IV 40 MG VIAL ONE (04:34)
[2020-04-30] MEDS: PANTOPRAZOLE SODIUM IV 40 MG VIAL IV SCH (05:57)
--- NOTE | 2020-04-30 06:56 | RAD ---
EXAM: XR Chest, 2 Views CLINICAL HISTORY: The patient is 74 years old and is Male; chf TECHNIQUE: Frontal and lateral views of the chest. COMPARISON: No relevant prior studies available. FINDINGS: Lungs: Patchy interstitial opacities bilaterally. Hyperexpansion of the lungs bilaterally. Pleural space: Unremarkable. No pneumothorax. Heart: Unremarkable. Mediastinum: Unremarkable. Bones/joints: Median sternotomy wires. Tubes, lines and devices: Spinal stimulator leads in place. IMPRESSION: Patchy interstitial opacities bilaterally. Electronically signed by: Jimy Robles MD 04/30/2020 6:54 AM [employer]END[employer] FURNACE TENDER
[2020-04-30] MEDS: INSULIN LISPRO 100 UNITS/ML PEN SUBCU SCH ×4 (07:27→21:18)
[2020-04-30] MEDS ORDERED: IPRATROPIUM/ALBUTEROL 3 ML VIAL NEB ONE ×2 (08:10→15:35)
[2020-04-30] MEDS ORDERED: FUROSEMIDE 40 MG TAB ONE (08:59)
[2020-04-30] MEDS ORDERED: FLUoxetine HCL 20 MG CAP ONE (08:59)
[2020-04-30] MEDS ORDERED: diltiaZEM HCL CD 180 MG CAP ONE ×2 (08:59→19:38)
[2020-04-30] MEDS ORDERED: CARVEDILOL 12.5 MG TAB ONE ×2 (08:59→19:38)
[2020-04-30] MEDS ORDERED: FUROSEMIDE 40 MG TAB PO SCH (09:00)
[2020-04-30] MEDS ORDERED: GEMFIBROZIL 600 MG TAB ONE ×2 (09:00→19:39)
[2020-04-30] MEDS: CARVEDILOL 12.5 MG PO SCH ×2 (09:31→21:08)
[2020-04-30] MEDS: diltiaZEM HCL CD 180 MG CAP PO SCH ×2 (09:31→21:09)
[2020-04-30] MEDS: (Febuxostat [Uloric] 80 MG) PO SCH (09:33)
[2020-04-30] MEDS: FLUOXETINE HCL 40 MG PO SCH (09:34)
[2020-04-30] MEDS: HYDROCORTISONE 5 MG PO SCH ×2 (09:34→21:10)
[2020-04-30] MEDS: GEMFIBROZIL 600 MG TAB PO SCH ×2 (09:35→21:09)
[2020-04-30] MEDS: NON-FORMULARY MEDICATION 1 EA MIS (Rosuvastatin Calcium [Crestor] 10 MG) PO SCH (09:35)
[2020-04-30] MEDS: SODIUM CHLORIDE 0.9% (FLUSH) 10 ML SYG IV SCH ×2 (09:35→21:11)
[2020-04-30] MEDS ORDERED: MAGNESIUM SULFATE PREMIX 2GM 2 GM in PREMIX BAG 1 BAG IVPB ONE (09:40)
[2020-04-30] MEDS ORDERED: METHADONE HCL 10 MG TAB ONE ×2 (12:49→19:38)
[2020-04-30] MEDS ORDERED: MAGNESIUM SULFATE PREMIX 2GM 50 ML IVPB ONE (12:50)
[2020-04-30] MEDS: METHADONE HCL 10 MG TAB PO SCH ×2 (12:55→22:01)
[2020-04-30] MEDS ORDERED: BENZONATATE PERLES 100 MG CAP PO PRN (19:15)
[2020-04-30] MEDS ORDERED: LEVALBUTEROL NEBS 1.25 MG/3 ML VIAL NEB PRN (19:23)
[2020-04-30] MEDS ORDERED: ENOXAPARIN SODIUM 40 MG/0.4 ML SYG SUBCU ONE (19:39)
[2020-04-30] MEDS ORDERED: SODIUM CHLORIDE 0.9% (FLUSH) 10 ML SYG ONE (19:39)
[2020-04-30] MEDS ORDERED: GABAPENTIN 100 MG CAP ONE (19:39)
[2020-04-30] MEDS ORDERED: diphenhydrAMINE HCL 25 MG CAP ONE (19:40)
[2020-04-30] MEDS ORDERED: LORazepam 1 MG TAB ONE (19:40)
[2020-04-30] MEDS: LEVALBUTEROL NEBS 1.25 MG/3 ML VIAL NEB SCH (20:52)
[2020-04-30] MEDS: GABAPENTIN 100 MG CAP PO SCH (21:09)
[2020-04-30] MEDS: ENOXAPARIN SODIUM 40 MG/0.4 ML SYG SUBCU SCH (21:10)
[2020-04-30] MEDS: guaiFENesin ER TAB 600 MG TAB PO SCH (21:10)
[2020-04-30] MEDS: diphenhydrAMINE HCL 25 MG CAP PO PRN (21:12)
[2020-04-30] MEDS: LORazepam 1 MG TAB PO PRN (21:12)
[2020-05-01] MEDS ORDERED: PANTOPRAZOLE SODIUM IV 40 MG VIAL ONE (04:13)
[2020-05-01] MEDS: PANTOPRAZOLE SODIUM IV 40 MG VIAL IV SCH (06:07)
[2020-05-01] MEDS: INSULIN LISPRO 100 UNITS/ML PEN SUBCU SCH ×4 (07:50→21:25)
--- NOTE | 2020-05-01 07:54 | RAD ---
: 1945. Technique: Portable AP chest x-ray. Comparison: April 30, 2020. Clinical history: chf. Heart size: Borderline/mild cardiomegaly. Sternotomy. Lungs: There is vascular congestion. Interstitial septal opacities are seen in the central and lower lung galvan consistent with mild interstitial edema/pneumonitis. No acute changes. Pleura: No pleural effusion. No pneumothorax. Mediastinum and ivan: Unremarkable. Skeletal: Cervical fusion hardware. Thoracic neurostimulator catheters. Support tubings: None. Impression: 1. Cardiomegaly, vascular congestion and mild interstitial edema. Electronically signed by: Hector Centeno MD 05/01/2020 7:52 AM SENIOR INVESTMENT MANAGER
[2020-05-01] MEDS ORDERED: METHADONE HCL 10 MG TAB ONE ×2 (08:58→19:20)
[2020-05-01] MEDS ORDERED: diltiaZEM HCL CD 180 MG CAP ONE (08:58)
[2020-05-01] MEDS ORDERED: CARVEDILOL 12.5 MG TAB ONE (08:59)
[2020-05-01] MEDS ORDERED: FLUoxetine HCL 20 MG CAP ONE (08:59)
[2020-05-01] MEDS ORDERED: GEMFIBROZIL 600 MG TAB ONE ×2 (09:00→19:21)
[2020-05-01] MEDS: LEVALBUTEROL NEBS 1.25 MG/3 ML VIAL NEB SCH ×4 (09:06→21:30)
[2020-05-01] MEDS: IPRATROPIUM/ALBUTEROL 3 ML VIAL INH SCH ×2 (09:06→13:12)
[2020-05-01] MEDS: guaiFENesin ER TAB 600 MG TAB PO SCH ×2 (10:38→20:47)
[2020-05-01] MEDS: GEMFIBROZIL 600 MG TAB PO SCH ×2 (10:38→20:46)
[2020-05-01] MEDS: diltiaZEM HCL CD 180 MG CAP PO SCH (10:38)
[2020-05-01] MEDS: METHADONE HCL 10 MG TAB PO SCH ×2 (10:38→22:21)
[2020-05-01] MEDS: FLUOXETINE HCL 40 MG PO SCH (10:39)
[2020-05-01] MEDS: HYDROCORTISONE 5 MG PO SCH ×2 (10:39→20:47)
[2020-05-01] MEDS: (Febuxostat [Uloric] 80 MG) PO SCH (10:39)
[2020-05-01] MEDS: CARVEDILOL 12.5 MG PO SCH ×2 (10:39→20:49)
[2020-05-01] MEDS: SODIUM CHLORIDE 0.9% (FLUSH) 10 ML SYG IV SCH ×2 (10:39→20:48)
[2020-05-01] MEDS: NON-FORMULARY MEDICATION 1 EA MIS (Rosuvastatin Calcium [Crestor] 10 MG) PO SCH (10:39)
[2020-05-01] MEDS: FUROSEMIDE INJ 40 MG/4 ML VIAL IV SCH ×2 (10:39→16:35)
[2020-05-01] MEDS ORDERED: AZITHROMYCIN IV 500 MG VIAL IVPB ONE (11:53)
[2020-05-01] MEDS ORDERED: cefTRIAXone SODIUM 1 GM VIAL ONE ×2 (11:54)
[2020-05-01] MEDS: AZITHROMYCIN IV 500 MG in SODIUM CHLORIDE 0.9% 250ML 250 ML IVPB SCH (12:02)
[2020-05-01] MEDS: cefTRIAXone SODIUM 1 GM in SODIUM CHL 0.9% 50ML MIN-BAG+ 50 ML IVPB SCH (12:02)
[2020-05-01] MEDS ORDERED: LEVALBUTEROL NEBS 1.25 MG/3 ML VIAL NEB ONE ×3 (12:30→19:58)
[2020-05-01] MEDS ORDERED: FUROSEMIDE 40 MG TAB ONE (16:33)
[2020-05-01] MEDS ORDERED: ALBUTEROL SULFATE 2.5 MG/3 ML VIAL NEB ONE (16:35)
[2020-05-01] MEDS ORDERED: guaiFENesin ER TAB 600 MG TAB ONE (19:21)
[2020-05-01] MEDS ORDERED: ENOXAPARIN SODIUM 40 MG/0.4 ML SYG SUBCU ONE (19:21)
[2020-05-01] MEDS ORDERED: GABAPENTIN 100 MG CAP ONE (19:21)
[2020-05-01] MEDS ORDERED: SODIUM CHLORIDE 0.9% (FLUSH) 10 ML SYG ONE (19:22)
--- NOTE | 2020-05-01 19:23 | PN ---
SUPERVISING PHYSICIAN: Juventino Hunt MD DATE: 05/01/20 SUBJECTIVE: The patient seems to be not quite as short of breath today. He is still requiring some IV Lasix with some edema still noted to his lower extremities. He has not had any chest pains. He is still being treated for pneumonia and is m maintaiining his 02 saturations. OBJECTIVE: VITAL SIGNS: Temperature 98.1, pulse 67, blood pressure 127/52, respirations 16, oxygen saturation 94% on room air at rest. GENERAL: The patient seems to be resting comfortably and in no acute distress. He is alert and oriented x3. LABORATORY: White count 6,600, hemoglobin stable at 9.2, hematocrit 28.3 with RBC indices indication a microcytic hypochromic anemia with platelet count 281,000, differential shows to be without a left shift. Chemistries are showing normal potassium and sodium, creatinine is at 2.26. BUN 50, calcium and magnesium normal BNP is down 6o 646 from admission of 811. RADIOLOGY: Portable chest x-ray per radiology interpretation showed cardiomegaly with vascular congestion and mild interstitial edema compared to April 30. ASSESSMENT: 1. Decompensated congestive heart failure likely combined systolic/diastolic with echocardiogram pending. 2. Bilateral pneumonia, community acquired. 3. Chronic renal insufficiency on chronic diuresis with some mild dehydration. 4. Hypoxemia secondary to #1 and #2. 5. Coronary artery disease. 6. Hypertension. 7. Diabetes mellitus type 2. PLAN: Will continue with IV Lasix today. I anticipate hopefully he will be discharged tomorrow. I will review his echocardiogram once it is available on Saturday. He remains on Rocephin and azithromycin for treatment of underlying community acquired pneumonia. He remains on fluid restrictions. He is on sliding scale per protocol. We will recheck chest x-ray in the morning and a BNP. His CBC seems to be stable. Until we can transition him to outpatient management which hopefully will occur tomorrow, we will continue to monitor and treat as needed. [facility][id number] [facility]
[2020-05-01] MEDS ORDERED: LORazepam 1 MG TAB ONE (19:28)
[2020-05-01] MEDS ORDERED: diphenhydrAMINE HCL 25 MG CAP ONE (19:28)
[2020-05-01] MEDS: diphenhydrAMINE HCL 25 MG CAP PO PRN (20:46)
[2020-05-01] MEDS: LORazepam 1 MG TAB PO PRN (20:47)
[2020-05-01] MEDS: GABAPENTIN 100 MG CAP PO SCH (20:47)
[2020-05-01] MEDS: ENOXAPARIN SODIUM 40 MG/0.4 ML SYG SUBCU SCH (20:47)
[2020-05-02] MEDS: IV SET AND CAP CHANGE INJ INJ SCH (00:28)
[2020-05-02] MEDS ORDERED: LEVALBUTEROL NEBS 1.25 MG/3 ML VIAL NEB ONE ×2 (04:36→08:39)
[2020-05-02] MEDS ORDERED: PANTOPRAZOLE SODIUM IV 40 MG VIAL ONE (05:20)
[2020-05-02] MEDS: PANTOPRAZOLE SODIUM IV 40 MG VIAL IV SCH (06:11)
--- NOTE | 2020-05-02 06:15 | RAD ---
EXAM: XR Chest, 1 View CLINICAL HISTORY: The patient is 74 years old and is Male; CHF TECHNIQUE: Frontal view of the chest. COMPARISON: Chest x-ray 05/01/2020. FINDINGS: Lungs: Opacities in the left lung base which may represent atelectasis or airspace disease. Prominent interstitial markings in the lungs bilaterally suggestive of interstitial edema. Pleural space: Unremarkable. No pneumothorax. Heart: Unremarkable. Mediastinum: Unremarkable. Bones/joints: Median sternotomy wires. Fixation hardware in the cervical spine. IMPRESSION: 1. Opacities in the left lung base which may represent atelectasis or airspace disease. 2. Prominent interstitial markings in the lungs bilaterally suggestive of interstitial edema. Electronically signed by: Jimy Robles MD 05/02/2020 6:14 AM [facility]
[2020-05-02] MEDS ORDERED: METHADONE HCL 10 MG TAB ONE (06:52)
[2020-05-02] MEDS ORDERED: CARVEDILOL 12.5 MG TAB ONE (06:53)
[2020-05-02] MEDS ORDERED: FLUoxetine HCL 20 MG CAP ONE (06:53)
[2020-05-02] MEDS ORDERED: FUROSEMIDE INJ 40 MG/4 ML VIAL ONE (06:53)
[2020-05-02] MEDS ORDERED: guaiFENesin ER TAB 600 MG TAB ONE (06:53)
[2020-05-02] MEDS ORDERED: GEMFIBROZIL 600 MG TAB ONE (06:54)
[2020-05-02] MEDS: INSULIN LISPRO 100 UNITS/ML PEN SUBCU SCH ×2 (07:31→11:56)
[2020-05-02] MEDS: FUROSEMIDE INJ 40 MG/4 ML VIAL IV SCH (08:23)
[2020-05-02] MEDS: guaiFENesin ER TAB 600 MG TAB PO SCH (08:23)
[2020-05-02] MEDS: FLUOXETINE HCL 40 MG PO SCH (08:25)
[2020-05-02] MEDS: CARVEDILOL 12.5 MG PO SCH (08:25)
[2020-05-02] MEDS: (Febuxostat [Uloric] 80 MG) PO SCH ×2 (08:25→08:33)
[2020-05-02] MEDS: GEMFIBROZIL 600 MG TAB PO SCH (08:26)
[2020-05-02] MEDS: HYDROCORTISONE 5 MG PO SCH (08:40)
[2020-05-02] MEDS: SODIUM CHLORIDE 0.9% (FLUSH) 10 ML SYG IV SCH (08:41)
[2020-05-02] MEDS: NON-FORMULARY MEDICATION 1 EA MIS (Rosuvastatin Calcium [Crestor] 10 MG) PO SCH (08:41)
[2020-05-02] MEDS ORDERED: BIFIDOBACTERIUM INFANTIS 4 MG CAP PO SCH (09:00)
[2020-05-02] MEDS: LEVALBUTEROL NEBS 1.25 MG/3 ML VIAL NEB SCH ×2 (09:15→13:10)
--- NOTE | 2020-05-02 09:21 | PN ---
SUPERVISING PHYSICIAN: Magali Hunt MD DATE: 04/30/20 SUBJECTIVE: The patient is lying in bed asleep. He awakens easily. He continues to improve and has no complaints of chest pain, nausea or vomiting. OBJECTIVE: VITAL SIGNS: Temperature 98.3, heart rate 55, blood pressure 159/68, respiratory rate 16, O2 saturation 100% on room air. RESPIRATORY: Essentially clear to auscultation bilaterally. CARDIAC: Regular rate and rhythm. NEUROLOGIC: Awake, alert and oriented times three. LABORATORY: WBCs 7,900, hemoglobin 9.6, hematocrit 29.7. Electrolytes are within normal limits. BUN 50, creatinine 2.26. MICROBIOLOGY: Preliminary blood cultures show no growth after 2 days. RADIOLOGY: Chest x-ray shows patchy interstitial opacities bilaterally. All other labs and films have been reviewed via the EMR. ASSESSMENT: 1. Congestive heart failure of unknown etiology with no current echocardiogram to review, as well as a current exacerbation. 2. Bilateral pneumonia, most likely community acquired. 3. Hypoxemia secondary to #1 and #2. 4. Chronic renal insufficiency. 5. Coronary artery disease. 6. Hypertension. 7. Diabetes mellitus, type 2. PLAN: We will continue present supportive care. He will have an echocardiogram on Saturday. I increased his Lasix as his output has been poor. We will watch his clinical progress over the next day or so. I will order labs for in the morning. He will have aggressive pulmonary hygiene. We will continue to monitor the patient closely and follow as needed. #[id number] [facility]
[2020-05-02] MEDS: cefTRIAXone SODIUM 1 GM in SODIUM CHL 0.9% 50ML MIN-BAG+ 50 ML IVPB SCH (10:02)
[2020-05-02] MEDS: METHADONE HCL 10 MG TAB PO SCH (10:04)
[2020-05-02 10:07] VITALS: BP 176/74; TEMP 98.1; O2SAT 94
[2020-05-02] MEDS: AZITHROMYCIN IV 500 MG in SODIUM CHLORIDE 0.9% 250ML 250 ML IVPB SCH (11:04)
[2020-05-02] MEDS ORDERED: FUROSEMIDE 40 MG TAB ONE (12:03)
[2020-05-02] MEDS ORDERED: SIMVASTATIN 20 MG TAB PO SCH (21:00)
[2020-05-02] MEDS ORDERED: CARVEDILOL 12.5 MG TAB PO SCH (21:00)
[2020-05-03] MEDS ORDERED: FLUoxetine HCL 20 MG CAP PO SCH (09:00)
--- NOTE | 2020-05-04 11:05 | DS ---
SUPERVISING PHYSICIAN: Paul Chawla MD ADMISSION DIAGNOSES: 1. Congestive heart failure of unknown etiology with no current echocardiogram to review, as well as a current exacerbation. 2. Bilateral pneumonia, most likely community acquired. 3. Hypoxemia secondary to #1 and #2. 4. Chronic renal insufficiency. 5. Coronary artery disease. 6. Hypertension. 7. Diabetes mellitus type 2. DISCHARGE DIAGNOSES: 1. Decompensated congestive heart failure with diastolic etiology with current echocardiogram showing ejection fraction of approximately 60%. Please see that final report for details. 2. Bilateral pneumonia, community acquired complicating #1, showing improvement. 3. Chronic renal insufficiency due to chronic diuresis showing to be at baseline levels prior to discharge. 4. Microcytic/hypochromic anemia likely secondary to iron-deficiency anemia and needs to be followed up with Dr. Boyd, likely chronic with no signs of acute loss. 5. Hypoxemia associated with #1 and #2, improved prior to discharge. 6. Coronary artery disease. 7. Hypertension. 8. Diabetes mellitus type 2. 9. Chronic atrial fibrillation not on blood thinners at time of admission, followed by Cardiology and Dr. Boyd. REASON FOR HOSPITALIZATION: This is a 74 year-old male patient who presented to Emergency Room due to shortness of breath that had progressively worsened over the last 4 or 5 days. He denied any fevers. He has some nausea with a mild cough. He had no chest pain. He does have a history of congestive heart failure and chronic lung deficiency as well as coronary artery disease and diabetes, supposedly on fluid restriction but does not adhere to that. His 02 saturation on admission to the Emergency Room was 85% and he does not have 02 at home. His vital signs on admission were temperature 97.5, heart rate 78, blood pressure 185/123. He was given blood pressure medicine and it came down to 172/73, respiratory rate 24, 02 saturation 85% on room air. WBC 10,800 with hemoglobin 10.1, hematocrit 31.3. D-dimer 930, fibrinogen 675, sodium 137, potassium 4.5, chloride 95, carbon dioxide 29, BUN 40, creatinine 2.1, baseline creatinine about 2. Magnesium .5, BNP 811, TSH 264. Urinalysis unremarkable. Blood cultures were drawn. Covid panel was negative. Chest x-ray shows cardiomegaly with hazy bilateral perihilar interstitial and alveolar opacities. Findings most likely represent pulmonary edema, although infectious infiltrate not excluded. Correlate clinically. He was given some Lasix, multiple breathing treatments and azithromycin and Rocephin. He was also given some extra insulin due to his high blood sugars and was admitted to the hospital in stable condition. LABORATORY STUDIES: White count on discharge was 6,600, hemoglobin 9.2, hematocrit 28.3, differential does show a microcytic/hypochromic presentation. Coagulation studies showed D-dimer 930 with fibrinogen 675. Chemistries showing normal electrolytes, creatinine down to 2.3, blood sugars ranging between 160 and 320. Calcium 8.9, lipase and amylase were both within normal limits. TSH normal at 2.64. BNP initially was 811, prior to discharge was down to 646. Urinalysis showed a trace of blood with 250 of glucose, 300 protein. Microscopic was within normal limits. MICROBIOLOGY: Blood cultures remained negative for 5 days. Covid swab was negative. RADIOLOGY: Final chest x-ray prior to discharge on May 02 showed opacities in the left lung base which could represent airspace disease with some prominent interstitial markings in the lungs bilaterally suggest interstitial edema. 12- lead EKG on admission showed right bundle branch block but no definite ST- segment or T-wave changes indicating acute ischemia noted in atrial fibrillation with a rate of 88 [id number]. HOSPITAL COURSE: Mr. Saini was admitted for acute decompensated heart failure along with associated pneumonia. He was started on antibiotics for treatment of pneumonia treated with azithromycin and Rocephin. He had aggressive pulmonary hygiene, he was diuresed with Lasix fairly aggressively and did show good improvement. Vital signs are showing improvement. He was maintaining oxygen saturations of 94% on room air at rest with no acute decompensation or desaturations on ambulation. It was noted while he was on telemetry, he did not have any ectopy or any other abnormal findings other than he did show that while he was taking his doses of Cardizem, within about 6 hours he became fairly bradycardiac but not symptomatic, in fact, it was noted that he got down into the 40s but he never reported any symptoms, no dizziness, no syncope and his blood pressure remained stable. After talking with Dr. Boyd, I have decided to decrease his regimen of Diltiazem from 180 b.i.d. to 120 b.i.d. and the patient was showing to be stable at that time. It was felt that he has improved clinically well enough to continue with outpatient management. On discharge, he was afebrile with temperature of 98.1, pulse 76, blood pressure 176/74, oxygen saturation 94% on room air with no desaturations noted with ambulation, respirations are 16. Mr. Saini was discharged to followup with Dr. Boyd in 7 days or sooner. He was to take the rest of his medications as directed with noted modification of his Diltiazem. I did stop his 180 mg b.i.d. and decreased that to 120 mg b.i.d. due to some mild bradycardia seen during this hospitalization. He was given instructions to return to the Emergency Department or call Dr. Boyd for any concerning symptoms. He is to resume his usual diet including diabetic diet, increase activities as tolerated. Medications prescribed on discharge: 1. Align 4 mg daily while on antibiotics. 2. Cardizem 120 mg twice a day with the 180 mg twice a day being discontinued, #60, no refills. 3. Cefdinir 300 mg twice a day, #10, no refills. 4. Xopenex 45 mcg inhaled, one puff every 4 hours as needed for shortness of breath. All other medications were continued as is prior to hospitalization. DISPOSITION: The patient was discharged home. CONDITION ON DISCHARGE: Stable and improved. #[id number] [facility]
--- NOTE | 2020-05-11 08:29 | PN ---
SUPERVISING PHYSICIAN: Magali Hunt MD DATE: 04/29/20 SUBJECTIVE: The patient is sitting up in his bed. He continues to have some shortness of breath. We discussed his plan of care and that his medications may have to be adjusted. We will also continue with azithromycin and Rocephin. He has no nausea or vomiting, denies chest pain. OBJECTIVE: VITAL SIGNS: Temperature 98.5, heart rate 67, blood pressure 175/74, respiratory rate 18, O2 saturation 95% on room air. RESPIRATORY: A few scattered rales throughout all lung galvan, but otherwise clear to auscultation. CARDIAC: Regular rate and rhythm. NEUROLOGIC: Awake, alert and oriented times three. LABORATORY: WBCs 8,00, hemoglobin 9.3, hematocrit 29.3. He has a left shift on differential. Sodium 134, potassium 4.4, chloride 95, BUN 43, creatinine 2.12, calcium 8.8, magnesium 1.9. Liver enzymes within normal limits. MICROBIOLOGY: Preliminary blood cultures show no growth. RADIOLOGY: Chest x-ray shows pulmonary vascular congestion. Echocardiogram shows 1) Left ventricular ejection fraction 2D estimated 60-65%. 2) Mild concentric left ventricular hypertrophy. 3) Mild left atrial enlargement. 4) Mild right atrial enlargement. 5) Moderate mitral valve regurgitation. 6) Moderate to severe tricuspid valve regurgitation. 7) Severely elevated estimated right ventricular systolic pressure. ASSESSMENT: 1. Congestive heart failure, grade 1 diastolic dysfunction with ejection fraction of 60-65% with current exacerbation. 2. Bilateral pneumonia, most likely community acquired. 3. Hypoxemia secondary to #1 and #2, improved. 4. Chronic renal insufficiency. 5. Coronary artery disease. 6. Hypertension. 7. Diabetes mellitus, type 2. PLAN: We will continue present supportive care. We will try to titrate off his IV Lasix and resume his oral Lasix. His antibiotics will be continued. His home medications will be continued. I have done extensive CHF education. We will monitor and treat as needed. #[id number] [facility]
[2020-05-20] MEDS ORDERED: levoFLOXacin 500MG IV 500 MG in PREMIX BAG 1 BAG IVPB ONE (13:43)
== END 2020-05-02 14:58 | disposition home or self-care (01) | DRG 291 ==
LOC: ER 14:40 → OBSVTOIN 18:19 → MS 18:19
PROVIDERS: ADMIT Nurse Practitioner Acute Care; ATTEND Nurse Practitioner Family
DX: I13.0 Hypertensive heart and chronic kidney disease with heart failure and stage 1 through stage 4 chronic kidney disease, or unspecified chronic kidney disease (principal); I50.23 Acute on chronic systolic (congestive) heart failure; J44.1 Chronic obstructive pulmonary disease with (acute) exacerbation; J44.0 Chronic obstructive pulmonary disease with (acute) lower respiratory infection; J18.9 Pneumonia, unspecified organism; I48.20 Chronic atrial fibrillation, unspecified; N18.9 Chronic kidney disease, unspecified; D50.9 Iron deficiency anemia, unspecified; R09.02 Hypoxemia; E11.9 Type 2 diabetes mellitus without complications; Z20.822 Contact with and (suspected) exposure to COVID-19; Z79.4 Long term (current) use of insulin

== ENCOUNTER 2020-05-18 14:58 | Inpatient (IN) | payer MEDICARE ==
--- NOTE | 2020-05-18 17:08 | HP ---
SUPERVISING PHYSICIAN: Terrell Suazo MD CHIEF COMPLAINT: Shortness of breath. HISTORY OF PRESENT ILLNESS: This is a 74-year-old male patient who was in his primary care physician's office, Dr. Boyd, due to worsening shortness of breath. He also has a significant history of chronic renal disease as well as congestive heart failure, anemia, atrial fibrillation. He is not on any blood thinners at this time due to his history of anemia with positive stool guaiacs. He also has diabetes, type 2. He was actually in the hospital for similar symptoms about 20 days ago. After discharge, his Lasix was adjusted and he had increased shortness of breath over the last few days. He had multiple adjustments to his diuretics over the last few days and he has not improved. In fact, he has actually gotten somewhat worse. He actually had swelling in his lower extremities and he normally has fluid in his abdomen. He also has renal insufficiency and at his appointment yesterday, his creatinine was 3.21. His normal baseline creatinine is about 2 to 2.1. His oral Lasix has been ineffective over the last few days and with his worsening symptoms, Dr. Boyd called and asked for a direct admit to the hospital. PAST MEDICAL HISTORY: 1. Atrial fibrillation, presently on no blood thinners. 2. Chronic renal insufficiency. 3. Diabetes mellitus, type 2. 4. Congestive heart failure of unknown etiology. His recent echocardiogram has been requested. 5. Hyperlipidemia. 6. Reactive airway disease. 7. Hypertension. PAST SURGICAL HISTORY: 1. Coronary artery bypass graft. 2. Back surgery. 3. Neck surgery. 4. Hemorrhoid surgery. OUTPATIENT MEDICATIONS: Per the EMR and awaiting verification. ALLERGIES: ATORVASTATIN, LIRAGLUTIDE, PHENOL, PROPYLENE GLYCOL. FAMILY HISTORY: Noncontributory. SOCIAL HISTORY: He lives in [place]. He quit smoking in his early 30s. He drinks alcohol socially. There is no history of any illicit drug use. REVIEW OF SYSTEMS: GENERAL: Positive for fatigue. He has lost 5 pounds of weight unintentionally. Negative for fever. HEENT: Negative for sinus symptoms, ear pain, vision changes or sore throat. RESPIRATORY: Positive for shortness of breath and occasional coughing as well as occasional wheezing. CARDIAC: Negative for chest pain, palpitations or tachycardia. GASTROINTESTINAL: Positive for abdominal swelling. Negative for nausea, vomiting or abdominal pain. GENITOURINARY: Negative for hematuria, dysuria or polyuria. MUSCULOSKELETAL: Negative for arthralgias, myalgias. SKIN: Negative for lesions or rashes. EXTREMITIES: Positive for lower extremity edema. NEUROLOGIC: Negative for headache or seizures. PHYSICAL EXAMINATION: VITAL SIGNS: Temperature 96.3, heart rate 84, blood pressure 151/74, respiratory rate 22, O2 saturation 91% on 2 liters nasal cannula. GENERAL: This is a 74-year-old male patient who is lying in his hospital bed. He is in mild respiratory distress. HEENT: Normocephalic, atraumatic. Pupils are equal and reactive. NECK: Supple with full range of motion. RESPIRATORY: Diminished breath sounds with a few expiratory wheezes. There are some very faint rales in the upper lung areas. He is mildly tachypneic at times. CARDIOVASCULAR: Regular rate and irregular rhythm. GASTROINTESTINAL: Abdomen is soft, nondistended. Bowel sounds are positive. NEUROLOGIC: Awake, alert and oriented times three. Cranial nerves II-XII are grossly intact as tested. LABORATORY: WBCs 7,700, hemoglobin 8.8, hematocrit 27.7. He has a left shift on differential. Electrolytes are basically within normal limits, but BUN is 73, creatinine 3.21. Serum osmolality 295.5. BNP 716. Urinalysis unremarkable. RADIOLOGY: Chest x-ray from [facility] is unavailable at this time. IMPRESSION: 1. Acute exacerbation of congestive heart failure. He recently had an echocardiogram and this has been requested. 2. Acute on chronic renal failure. Baseline creatinine is 2.1. Today's creatinine is 3.21. 3. Anemia, most likely of chronic disease. He has required iron transfusion and blood transfusions in the past. 4. Atrial fibrillation, presently on a beta jessica and LORIE inhibitor. He is not on any anticoagulants due to his high risk of bleeding. 5. Diabetes mellitus, type 2. 6. Hypertension. 7. Recent history of mild hypoglycemia in a diabetic. After discharge, he may need his diabetic medications readjusted. PLAN: The patient has been admitted to the hospital. He is on the CHF guidelines and I have ordered IV Lasix. I will repeat his labs in the morning. His home medications will be restarted as soon as the are verified. We will watch his renal function closely. I will also watch his H&H as he has required blood transfusions in the past. Sliding scale insulin per protocol will be initiated. I will hold on his routine diabetic medications for now as Dr. Boyd may need to adjust those after discharge. I have held on any antibiotics at this time as he was recently treated for pneumonia and does show any signs of an acute infection, but we will also monitor that closely. We will follow and treat as needed. #[id number] [facility]
[2020-05-18] MEDS ORDERED: SODIUM CHLORIDE 0.9% (FLUSH) 10 ML SYG IV PRN (17:22)
[2020-05-18] MEDS ORDERED: ONDANSETRON INJ 4 MG/2 ML VIAL IV PRN (17:22)
[2020-05-18] MEDS ORDERED: ACETAMINOPHEN 325 MG TAB PO PRN (17:22)
[2020-05-18] MEDS ORDERED: NITROGLYCERIN 0.4 MG 25 EA TAB SL PRN (17:22)
[2020-05-18] MEDS ORDERED: DEXTROSE 50% 25 GM/50 ML SYG IV PRN (17:27)
[2020-05-18] MEDS ORDERED: GLUCAGON INJ 1 MG VIAL SUBCU PRN (17:27)
[2020-05-18] MEDS ORDERED: IV SET AND CAP CHANGE INJ INJ SCH (17:30)
[2020-05-18] MEDS: FUROSEMIDE INJ 40 MG/4 ML VIAL IV SCH (18:23)
[2020-05-18] MEDS: SODIUM CHLORIDE 0.9% (FLUSH) 10 ML SYG IV SCH (20:24)
[2020-05-18] MEDS: INSULIN LISPRO 100 UNITS/ML PEN SUBCU SCH (21:18)
[2020-05-19] MEDS ORDERED: LORazepam 1 MG TAB ONE (00:10)
[2020-05-19] MEDS: INSULIN LISPRO 100 UNITS/ML PEN SUBCU SCH ×4 (07:10→21:13)
--- NOTE | 2020-05-19 07:44 | RAD ---
EXAM: XR Chest, 2 Views CLINICAL HISTORY: CHF TECHNIQUE: Frontal and lateral views of the chest. COMPARISON: 05/02/2020 FINDINGS: Lungs: Stable diffuse interstitial thickening. Pleural space: No pleural effusion. No pneumothorax. Heart: Stable cardiac enlargement. Mediastinum: No abnormality noted. Bones/joints: No abnormality noted. Tubes, lines and devices: Dorsal column stimulator unchanged. IMPRESSION: Stable abnormalities as above. Electronically signed by: Natalie Durbin MD 05/19/2020 7:43 AM [employer]
[2020-05-19] MEDS ORDERED: ALBUTEROL SULFATE 2.5 MG/3 ML VIAL NEB PRN (08:08)
[2020-05-19] MEDS: SODIUM CHLORIDE 0.9% (FLUSH) 10 ML SYG IV SCH ×2 (08:37→20:39)
[2020-05-19] MEDS: FUROSEMIDE INJ 40 MG/4 ML VIAL IV SCH ×2 (08:37→18:11)
[2020-05-19] MEDS ORDERED: HYDROcodone 5MG/APAP 325MG 1 EA TAB PO PRN (10:14)
[2020-05-19] MEDS ORDERED: CARVEDILOL 12.5 MG PO SCH (10:15)
[2020-05-19] MEDS ORDERED: DOXAZOSIN MESYLATE 2 MG PO SCH (10:15)
[2020-05-19] MEDS ORDERED: FLUOXETINE HCL 40 MG PO SCH (10:15)
[2020-05-19] MEDS ORDERED: diphenhydrAMINE HCL 50 MG/ML VIAL IV ONE (10:35)
[2020-05-19] MEDS ORDERED: ACETAMINOPHEN 325 MG TAB PO ONE (10:35)
[2020-05-19] MEDS ORDERED: SODIUM CHLORIDE 0.9% 500ML 500 ML IVS SCH (11:00)
[2020-05-19] MEDS ORDERED: METHADONE HCL 10 MG TAB ONE (11:06)
[2020-05-19] MEDS ORDERED: BUMETANIDE 0.25 MG/ML VIAL ONE (11:07)
[2020-05-19] MEDS ORDERED: diphenhydrAMINE HCL 50 MG/ML VIAL ONE (11:10)
[2020-05-19] MEDS: HYDROCORTISONE 2.5 MG PO SCH ×2 (11:21→20:39)
[2020-05-19] MEDS: FEBUXOSTAT 80 MG PO SCH (11:21)
[2020-05-19] MEDS: MAGNESIUM OXIDE 400 MG TAB PO SCH (11:22)
[2020-05-19] MEDS: FLUoxetine HCL 20 MG CAP PO SCH (11:22)
[2020-05-19] MEDS: DOXAZOSIN MESYLATE 2 MG TAB PO SCH ×2 (11:22→20:39)
[2020-05-19] MEDS: GEMFIBROZIL 600 MG TAB PO SCH ×2 (11:22→20:38)
[2020-05-19] MEDS: FINASTERIDE 5 MG TAB PO SCH (11:22)
[2020-05-19] MEDS: CARVEDILOL 12.5 MG TAB PO SCH ×2 (11:22→20:39)
[2020-05-19] MEDS: METHADONE HCL 10 MG TAB PO SCH ×2 (11:23→22:14)
[2020-05-19] MEDS ORDERED: BUMETANIDE 0.25 MG/ML VIAL IV ONE (12:00)
[2020-05-19] MEDS: IPRATROPIUM/ALBUTEROL 3 ML VIAL NEB SCH ×3 (16:40→20:40)
[2020-05-19] MEDS ORDERED: GABAPENTIN 100 MG CAP ONE (18:58)
--- NOTE | 2020-05-19 19:26 | PN ---
SUPERVISING PHYSICIAN: Terrell Suazo M.D. DATE: 05/19/20 SUBJECTIVE: The patient is sitting up in his chair in his room. Earlier this morning it was reported that he was feeling very short of breath as well as very anxious. According to his primary care physician, he is very symptomatic with even small drops in his hemoglobin and today his hemoglobin did drop to 8.2. His home medications were restarted and he is feeling much better, although he is still quite short of breath at times. OBJECTIVE: VITAL SIGNS: Temperature 97.4, heart rate 94, blood pressure 152/61, respiratory rate 22, O2 saturation 92% on 2 liters nasal cannula. Intake is 600 mL, output is 1700 for a net I and O of 1100 mL. He has lost about 1/2 kilo overnight. RESPIRATORY: Diminished breath sounds throughout. CARDIAC: Regular rate and rhythm. GASTROINTESTINAL: Abdomen is rounded. It is firm, but it is non-tender. Bowel sounds are positive. NEUROLOGIC: He is awake, alert and oriented times three. EXTREMITIES: Trace of pedal edema to bilateral lower extremities. LABORATORY: WBCs are 6,900 with hemoglobin 8.2, hematocrit 26.5. Sodium 140, potassium 3.7, chloride 99, BUN 74, creatinine 2.92, calcium 9.3, magnesium 1.8. All other labs and films have been reviewed via the EMR. ASSESSMENT: 1. Acute exacerbation of congestive heart failure. He recently had an echocardiogram and this has been requested. 2. Acute on chronic renal failure. Baseline creatinine is 2.1. Today's creatinine is 3.21. 3. Anemia, most likely of chronic disease. He has required iron transfusion and blood transfusions in the past. 4. Atrial fibrillation, presently on a beta jessica and LORIE inhibitor. He is not on any anticoagulants due to his high risk of bleeding. 5. Diabetes mellitus, type 2. 6. Hypertension. 7. Recent history of mild hypoglycemia in a diabetic. After discharge, he may need his diabetic medications readjusted. PLAN: We will continue present supportive care. Continue with his Lasix. He received an extra dose of Bumex earlier today and since then has felt less short of breath. I did order 1 unit of packed red blood cells to be transfused as the patient is very asymptomatic with very minimal decreases in his hemoglobin as well as he has been severely short of breath. His home medications have been restarted. He did complain of difficulty sleeping so I ordered Restoril for sleep. Labs will be ordered for in the morning. I have held all of his diabetic medications as he has had low blood sugars over the past several weeks and at this point may not restart those and let him followup with his primary care physician for an adjustment of his diabetic medications. He still will continue on the sliding scale insulin protocol. Will continue to monitor and treat as needed. #[id number] [facility]
[2020-05-19] MEDS: LORazepam 1 MG TAB PO PRN (20:38)
[2020-05-19] MEDS: NON-FORMULARY MEDICATION 1 EA MIS (Rosuvastatin Calcium [Crestor] 10 MG) PO SCH (20:39)
[2020-05-19] MEDS: GABAPENTIN 100 MG CAP PO SCH (20:39)
[2020-05-19] MEDS: BUDESONIDE NEBS 0.5 MG/2 ML INH NEB SCH (20:40)
[2020-05-20] MEDS: TEMAZEPAM 15 MG CAP PO PRN ×2 (01:05→22:01)
[2020-05-20] MEDS ORDERED: PANTOPRAZOLE SODIUM IV 40 MG VIAL ONE (05:14)
--- NOTE | 2020-05-20 06:11 | RAD ---
EXAM: XR Chest, 2 Views CLINICAL HISTORY: chf TECHNIQUE: Frontal and lateral views of the chest. COMPARISON: 05/19/2020 FINDINGS: Lungs: Multilevel patchy airspace infiltrates noted throughout both lungs. Pleural space: No pleural effusion. No pneumothorax. Heart: Stable cardiac enlargement. Mediastinum: No abnormality noted. Bones/joints: No abnormality noted. Tubes, lines and devices: Stable dorsal column stimulator. IMPRESSION: Stable abnormalities as above. Electronically signed by: Natalie Durbin MD 05/20/2020 6:09 AM [facility]
[2020-05-20] MEDS ORDERED: PANTOPRAZOLE SODIUM IV 40 MG VIAL IV SCH (06:30)
[2020-05-20] MEDS: INSULIN LISPRO 100 UNITS/ML PEN SUBCU SCH ×4 (07:01→20:49)
[2020-05-20] MEDS: BUDESONIDE NEBS 0.5 MG/2 ML INH NEB SCH ×2 (08:09→20:10)
[2020-05-20] MEDS: IPRATROPIUM/ALBUTEROL 3 ML VIAL NEB SCH ×4 (08:09→20:10)
[2020-05-20] MEDS: FUROSEMIDE INJ 40 MG/4 ML VIAL IV SCH ×2 (08:17→16:03)
[2020-05-20] MEDS: SENNA/DOCUSATE TAB 1 EA TAB PO SCH (08:17)
[2020-05-20] MEDS: MAGNESIUM OXIDE 400 MG TAB PO SCH (08:19)
[2020-05-20] MEDS: CARVEDILOL 12.5 MG TAB PO SCH ×2 (08:19→20:49)
[2020-05-20] MEDS: DOXAZOSIN MESYLATE 2 MG TAB PO SCH ×2 (08:19→20:49)
[2020-05-20] MEDS: FINASTERIDE 5 MG TAB PO SCH (08:19)
[2020-05-20] MEDS: HYDROCORTISONE 2.5 MG PO SCH ×2 (08:20→20:47)
[2020-05-20] MEDS: FLUoxetine HCL 20 MG CAP PO SCH (08:20)
[2020-05-20] MEDS: GEMFIBROZIL 600 MG TAB PO SCH ×2 (08:20→20:49)
[2020-05-20] MEDS: BIFIDOBACTERIUM INFANTIS 4 MG CAP PO SCH (08:20)
[2020-05-20] MEDS: FEBUXOSTAT 80 MG PO SCH (08:21)
[2020-05-20] MEDS: SODIUM CHLORIDE 0.9% (FLUSH) 10 ML SYG IV SCH ×2 (08:22→20:49)
[2020-05-20] MEDS: METHADONE HCL 10 MG TAB PO SCH ×2 (09:48→22:01)
--- NOTE | 2020-05-20 13:29 | CT ---
EXAM DESCRIPTION: Chest w/o Contrast CLINICAL HISTORY: 74 years Male, SOB, CHF vs PNA COMPARISON: Chest radiograph 05/20/2020. TECHNIQUE: CT images through the chest without IV contrast. Multiplanar reformations provided. This exam was performed according to our departmental dose-optimization program, which includes automated exposure control, adjustment of the mA and/or kV according to patient size and/or use of iterative reconstruction technique. CT CHEST FINDINGS: Heart and mediastinum: Enlarged heart. No pericardial effusion. Unremarkable esophagus. Mild atherosclerosis. Mediastinal adenopathy measuring up to 16 mm short axis left prevascular mediastinal may be reactive. Evaluation for hilar adenopathy limited without intravenous contrast. Thyroid Gland: Normal. Lungs: Emphysematous changes bilaterally. Heterogeneous contrast opacification diffusely throughout the lungs with more reticular nodular opacities in the right upper lobe. Airways: Normal. Pleura: Normal. Musculoskeletal and Soft Tissues: No acute fracture or aggressive appearing osseous lesion. Prior sternotomy. Dorsal column spinal stimulator wires terminate at the level of T9-T11. Soft tissues unremarkable. Subphrenic Structures: Normal. IMPRESSION: 1. Nodular densities in the right upper lobe may be infectious or inflammatory. 2. Heterogeneous contrast attenuation throughout the lungs may relate to pulmonary edema versus atypical infection or small airway disease. 3. Likely reactive mediastinal adenopathy. Attention on follow-up. Electronically signed by: Maynor Deleon MD 05/20/2020 1:27 PM [employer]
--- NOTE | 2020-05-20 15:40 | PN ---
SUPERVISING PHYSICIAN: Terrell Suazo M.D. DATE: 05/20/20 SUBJECTIVE: The patient reports that he is feeling a little better today. He did get one unit of packed red blood cells last night without any complications. They did a CT on him this morning that shows possibly what we are seeing on x- ray actually is related to the pneumonia, therefore, I have started him on treatment. OBJECTIVE: VITAL SIGNS: Temperature 98, pulse 66, blood pressure 165/59, respirations 18, oxygen saturation 96% on room air at rest. GENERAL: The patient looks to be resting comfortably and in no acute distress. He is alert. CHEST: Lung sounds are just a little diminished but I do not hear any rhonchi, rales, or wheezes. CARDIAC: Regular rate and rhythm. ABDOMEN: Soft, non-tender, positive bowel sounds. NEUROLOGIC: He is awake, alert and oriented times three. EXTREMITIES: Without edema. LABORATORY: White count 6,000, hemoglobin 9.5, hematocrit 30.0 after one unit of packed red blood cells. RBC indices indicate an microcytic hypochromic presentation with platelet count of 277,000. Differential shows to be without a left shift. Chemistries showing normal electrolytes. Creatinine 62, BUN 2.54, blood sugar ranges between 117 and 264. Liver functions all within normal limits. MICROBIOLOGY: No specimens submitted. RADIOLOGY: Chest x-ray this morning per radiology interpretation with followup CT of the chest showed nodular densities in the right upper lobe which may be infectious or inflammatory. There is heterogenous contrast attenuation throughout the lungs, related pulmonary edema versus atypical infection or small airway disease with some likely reactive mediastinal adenopathy. ASSESSMENT: 1. Acute decompensated heart failure adenopathy to anemia requiring packed RBCs requiring infusion of one packed RBCs with patient showing improvement. 2. Chronic renal failure likely exacerbated by aggressive diuresis with Lasix. 3. Anemia, hypochromic/microcytic presentation likely of chronic illness requiring previous iron transfusions and blood transfusions in the past. 4. Atrial fibrillation, on a beta jessica and LORIE inhibitor. He is not on any anticoagulants due to his high risk of bleeding with patient showing a controlled ventricular rate. 5. Bilateral pneumonia exacerbating #1, community acquired with recent treatment within the last 30 days in the hospital on IV antibiotics. 6. Diabetes mellitus, type 2. 7. Hypertension. 8. History of mild hypoglycemia possibly related to his diabetic medications needing adjustment. PLAN: We will continue with Lasix today as well as start him on Levaquin, renally dosed for the findings we saw on CT with concerns for possible pneumonia. Hopefully, we will able to transition patient to outpatient management tomorrow. We will follow his labs closely and probably transition him to oral Lasix in the morning. Until we can transition him to outpatient management, we will continue to monitor and treat as needed #[id number] MTDD
[2020-05-20] MEDS ORDERED: levoFLOXacin 500MG IV 100 ML IVPB ONE (15:58)
[2020-05-20] MEDS ORDERED: levoFLOXacin 500MG IV 500 MG in PREMIX BAG 1 BAG IVPB SCH (16:00)
[2020-05-20] MEDS ORDERED: levoFLOXacin 500MG IV 500 MG in PREMIX BAG 1 BAG IVPB ONE (16:02)
[2020-05-20] MEDS: NON-FORMULARY MEDICATION 1 EA MIS (Rosuvastatin Calcium [Crestor] 10 MG) PO SCH (20:46)
[2020-05-20] MEDS: LORazepam 1 MG TAB PO PRN (20:49)
[2020-05-20] MEDS: GABAPENTIN 100 MG CAP PO SCH (20:49)
[2020-05-20] MEDS ORDERED: SIMETHICONE 80 MG TAB PO PRN (20:56)
[2020-05-20] MEDS ORDERED: SULFA/TRIMETH INJ 800/160 PER 10 ML in DEXTROSE 5% 250ML 250 ML IVPB SCH (21:00)
[2020-05-20] MEDS ORDERED: LORazepam 1 MG TAB PO PRN (21:00)
[2020-05-20] MEDS ORDERED: SIMETHICONE 80 MG TAB ONE (21:01)
[2020-05-21 05:07] VITALS: O2SAT 94
[2020-05-21] MEDS: INSULIN LISPRO 100 UNITS/ML PEN SUBCU SCH ×2 (07:11→11:50)
[2020-05-21] MEDS ORDERED: FUROSEMIDE 40 MG TAB ONE (07:26)
[2020-05-21] MEDS ORDERED: PANTOPRAZOLE SODIUM TAB 40 MG PO ONE (07:26)
[2020-05-21] MEDS ORDERED: levoFLOXacin 250MG IV 50 ML IVPB ONE (07:27)
[2020-05-21] MEDS: FEBUXOSTAT 80 MG PO SCH (08:45)
[2020-05-21] MEDS: HYDROCORTISONE 2.5 MG PO SCH (08:45)
[2020-05-21] MEDS: DOXAZOSIN MESYLATE 2 MG TAB PO SCH (08:47)
[2020-05-21] MEDS: FINASTERIDE 5 MG TAB PO SCH (08:47)
[2020-05-21] MEDS: MAGNESIUM OXIDE 400 MG TAB PO SCH (08:47)
[2020-05-21] MEDS: SENNA/DOCUSATE TAB 1 EA TAB PO SCH (08:47)
[2020-05-21] MEDS: BIFIDOBACTERIUM INFANTIS 4 MG CAP PO SCH (08:47)
[2020-05-21] MEDS: CARVEDILOL 12.5 MG TAB PO SCH (08:47)
[2020-05-21] MEDS: FLUoxetine HCL 20 MG CAP PO SCH (08:48)
[2020-05-21] MEDS: GEMFIBROZIL 600 MG TAB PO SCH (08:48)
[2020-05-21] MEDS: METHADONE HCL 10 MG TAB PO SCH ×2 (08:48→10:13)
[2020-05-21] MEDS: SODIUM CHLORIDE 0.9% (FLUSH) 10 ML SYG IV SCH (08:49)
[2020-05-21] MEDS ORDERED: PANTOPRAZOLE SODIUM TAB 40 MG PO SCH (09:00)
[2020-05-21] MEDS ORDERED: FUROSEMIDE 40 MG TAB PO SCH (09:00)
[2020-05-21] MEDS ORDERED: levoFLOXacin 250MG IV 250 MG in PREMIX BAG 1 BAG IVPB SCH (09:00)
[2020-05-21] MEDS: IPRATROPIUM/ALBUTEROL 3 ML VIAL NEB SCH (09:50)
[2020-05-21] MEDS: BUDESONIDE NEBS 0.5 MG/2 ML INH NEB SCH (09:50)
[2020-05-21 13:51] VITALS: BP 133/56; TEMP 98.3
--- NOTE | 2020-05-26 11:24 | DS ---
SUPERVISING PHYSICIAN: Terrell Suazo MD ADMISSION DIAGNOSIS: 1. Acute exacerbation of congestive heart failure. He recently had an echocardiogram and this has been requested. 2. Acute on chronic renal failure. Baseline creatinine is 2.1. Today's creatinine is 3.21. 3. Anemia, most likely of chronic disease. He has required iron transfusion and blood transfusions in the past. 4. Atrial fibrillation, presently on a beta jessica and LORIE inhibitor. He is not on any anticoagulants due to his high risk of bleeding. 5. Diabetes mellitus, type 2. 6. Hypertension. 7. Recent history of mild hypoglycemia in a diabetic. After discharge, he may need his diabetic medications readjusted. DISCHARGE DIAGNOSIS: 1. Acute decompensated heart failure adenopathy to anemia requiring packed RBCs requiring infusion of one packed RBCs with patient showing improvement. 2. Chronic renal failure likely exacerbated by aggressive diuresis with Lasix. 3. Anemia, hypochromic/microcytic presentation likely of chronic illness requiring previous iron transfusions and blood transfusions in the past. 4. Atrial fibrillation, on a beta jessica and LORIE inhibitor. He is not on any anticoagulants due to his high risk of bleeding with patient showing a controlled ventricular rate. 5. Bilateral pneumonia exacerbating #1, community acquired with recent treatment within the last 30 days in the hospital on IV antibiotics. 6. Diabetes mellitus, type 2. 7. Hypertension. 8. History of mild hypoglycemia possibly related to his diabetic medications needing adjustment. REASON FOR HOSPITALIZATION: This is a 74-year-old male patient who was in his primary care physician's office, Dr. Boyd, due to worsening shortness of breath. He also has a significant history of chronic renal disease as well as congestive heart failure, anemia, atrial fibrillation. He is not on any blood thinners at this time due to his history of anemia with positive stool guaiacs. He also has diabetes, type 2. He was actually in the hospital for similar symptoms about 20 days ago. After discharge, his Lasix was adjusted and he had increased shortness of breath over the last few days. He had multiple adjustments to his diuretics over the last few days and he has not improved. In fact, he has actually gotten somewhat worse. He actually had swelling in his lower extremities and he normally has fluid in his abdomen. He also has renal insufficiency and at his appointment yesterday, his creatinine was 3.21. His normal baseline creatinine is about 2 to 2.1. His oral Lasix has been ineffective over the last few days and with his worsening symptoms, Dr. Boyd called and asked for a direct admit to the hospital. LABORATORY: White count at discharge was 6,000, hemoglobin 9.5, hematocrit 30.0 after 1 unit of packed red blood cells. Differential was without a left shift. Platelet count 277,000. Chemistries showed normal electrolytes. Creatinine down to 2.39. Blood sugars ranged between 138 and 148. Urinalysis showed greater than 300 protein, otherwise no significant findings. One occult blood of stool was positive. MICROBIOLOGY: No specimens were submitted. RADIOLOGY: CT of the chest and several chest x-rays were done. Per radiologic interpretation, CT of the chest without contrast showed nodular densities in the right upper lobe which may be infectious or inflammatory. There is some heterogeneous contrast attenuation throughout the lungs. This may relate to pulmonary edema versus atypical infection or small airway disease and some likely reactive mediastinal adenopathy with attention on followup. HOSPITAL COURSE: Mr. Saini was admitted for treatment of both congestive heart failure and chronic obstructive pulmonary disease exacerbation. He was diuresed with Lasix as well as started on antibiotic coverage with Levaquin, breathing treatments and started on Pulmicort nebulizers. He showed good clinical improvement and had good diuresis. He was felt clinically stable enough to discharge to continue with outpatient management. Vital signs on discharge showed saturation 94% on room air with temperature 98.3, pulse 65, blood pressure 133/56. PLAN: Mr. Saini was discharged on 05/21/20 with instructions to followup with Dr. Boyd in 7 days or sooner, to call his office to schedule an appointment. He was to resume a diabetic diet as tolerated and increase activity as tolerated. He was encouraged to keep his legs elevated when he was sitting in a chair. He was to resume all his previous medications including diabetic medication and take new medications as prescribed on discharge includin. Levaquin 250 mg daily for 10 days. 2. Pulmicort 0.5 mg nebulized twice daily, #60, no refills. CONDITION ON DISCHARGE: Stable and improved. DISPOSITION: The patient was discharged home. #[id number] [facility]
== END 2020-05-21 13:15 | disposition home or self-care (01) | DRG 291 ==
LOC: MS 14:58
PROVIDERS: ADMIT Nurse Practitioner Acute Care; ATTEND Nurse Practitioner Family
DX: I13.0 Hypertensive heart and chronic kidney disease with heart failure and stage 1 through stage 4 chronic kidney disease, or unspecified chronic kidney disease (principal); J18.9 Pneumonia, unspecified organism; N17.9 Acute kidney failure, unspecified; J44.1 Chronic obstructive pulmonary disease with (acute) exacerbation; I50.9 Heart failure, unspecified; N18.9 Chronic kidney disease, unspecified; D63.8 Anemia in other chronic diseases classified elsewhere; I48.91 Unspecified atrial fibrillation; E11.649 Type 2 diabetes mellitus with hypoglycemia without coma

== ENCOUNTER 2020-05-30 16:00 | Outpatient (CLI) | payer MEDICARE ==
[~2020-05-30 16:00] MED LIST: IRON SUCROSE INJ 200 MG in SODIUM CHLORIDE 0.9% 250ML 250 ML IV ONE; IRON SUCROSE INJ 200 MG in SODIUM CHLORIDE 0.9% 250ML 250 ML IVPB ONE
[2020-05-31 07:11] VITALS: BP 109/68; TEMP 98.9; O2SAT 99
== END 2020-05-31 18:00 | disposition home or self-care (01) ==
LOC: INFRM 16:00
PROVIDERS: ATTEND Family Medicine
DX: D50.0 Iron deficiency anemia secondary to blood loss (chronic) (principal); I13.0 Hypertensive heart and chronic kidney disease with heart failure and stage 1 through stage 4 chronic kidney disease, or unspecified chronic kidney disease; N18.9 Chronic kidney disease, unspecified
CPT/HCPCS: 82728; 83540; 83550; 96365; J1756; J7050

== ENCOUNTER → 2020-05-30 | Outpatient (CLI) | payer MEDICARE | LOC: CANPRECLI → GMAL 14:34 | PROVIDERS: ATTEND Family Medicine | DX: I13.0 Hypertensive heart and chronic kidney disease with heart failure and stage 1 through stage 4 chronic kidney disease, or unspecified chronic kidney disease (principal); N28.9 Disorder of kidney and ureter, unspecified; D50.0 Iron deficiency anemia secondary to blood loss (chronic) ==

== ENCOUNTER → 2020-06-02 | Outpatient (CLI) | payer MEDICARE ==
--- NOTE | 2020-06-02 14:03 | US ---
EXAM DESCRIPTION: Venous,Lower Extremity RT: ULTRASOUND. CLINICAL HISTORY: PAIN IN RIGHT LEG COMPARISON: None Available. TECHNIQUE: Aguilar-scale and doppler sonographic evaluation of the deep venous system of the right lower extremity. FINDINGS: Doppler evaluation shows normal color flow and normal phasicity and augmentation of the right common femoral vein, right femoral vein, popliteal vein, right greater saphenous vein, junction with the CFV. Also normal color flow and normal phasicity and augmentation of the right peroneal, and posterior tibial vein. The right lower extremity deep veins were completely compressible; normal occlusion with transducer pressure. Aguilar-scale survey showed no echogenic thrombus within these veins. IMPRESSION: 1. Duplex ultrasound evaluation of the right lower extremity deep venous system showing no evidence of thrombosis. Electronically signed by: Hieu Thomason MD 06/02/2020 2:02 PM [facility]
== END ==
LOC: US 07:25
PROVIDERS: ATTEND Family Medicine
DX: M79.604 Pain in right leg (principal)